=== PATIENT | female | born 1975 | race Two or more races ===

== ENCOUNTER 2020-04-10 11:50 | Outpatient (REF) | payer OTHER, SELFPAY ==
--- NOTE | 2020-04-10 11:55 | MM_ITS ---
EXAMINATION: MM SCREENING DIGITAL BREAST TOMOSYNTHESIS, BILATERAL CLINICAL INFORMATION: Screening. Asymptomatic. The lifetime risk of breast cancer based on the Tyrer-Cuzick Model is 8%. COMPARISON: Mammography: 03/28/2019, 03/14/2018 TECHNIQUE: Digital breast tomosynthesis is performed in both the craniocaudal and mediolateral oblique views along with computer-aided detection (CAD). Synthesized 2D images are generated from the tomosynthesis. FINDINGS: There are scattered areas of fibroglandular density (ACR BI-RADS breast composition Category b). There are no significant masses, abnormal calcifications, or other abnormalities. There are some small intramammary nodes again seen posterior upper outer right breast. The skin contours are smooth. No significant changes. MM/MM tomosynthesis screening BI IMPRESSION: No mammographic evidence of malignancy. ASSESSMENT: BI-RADS 2: Benign RECOMMENDATION: Routine annual mammography screening. This patient's information was entered into a reminder system with a target due date for their next mammogram.
== END 2020-04-10 11:51 | disposition home or self-care (01) ==
LOC: HO.MAMMO 11:50
PROVIDERS: PCP Internal Medicine; Visit Provider Internal Medicine
DX: Z12.31 Encounter for screening mammogram for malignant neoplasm of breast (principal)
CPT/HCPCS: 77063; 77067

== ENCOUNTER → 2020-05-01 10:07 | Outpatient (BNVA) | payer OTHER, SELFPAY | PROVIDERS: PCP Internal Medicine; Referring Provider Internal Medicine; Visit Provider Nurse Practitioner | DX: K75.81 Nonalcoholic steatohepatitis (NASH) (principal); K29.50 Unspecified chronic gastritis without bleeding; K21.9 Gastro-esophageal reflux disease without esophagitis; K58.0 Irritable bowel syndrome with diarrhea; K80.20 Calculus of gallbladder without cholecystitis without obstruction; Z79.899 Other long term (current) drug therapy | CPT/HCPCS: 99212 ==

== ENCOUNTER 2021-05-24 22:42 | Emergency (ER) | payer OTHER, SELFPAY ==
[2021-05-24 22:55] VITALS: BP 110/72; PULSE 75; RESP 26; TEMP 36.9; O2SAT 99; BMI 34.5
[2021-05-24] MEDS: Ondansetron ODT 4 MG TAB.RAPDIS TRANSLINGU (23:08)
[2021-05-24] MEDS: Acetaminophen 325 MG TABLET 650 MG PO (23:09)
[2021-05-24 23:25] LABS: MANUAL DIFF FLAG NO
[2021-05-24 23:26] LABS: Basophils Percent Auto 0.4 % (0-2); Eosinophils Absolute Auto 0.2 X10*3/uL (0.0-0.4); Eosinophils Percent Auto 2.3 % (0-4); Hematocrit 38.8 % (37.0-47.0); Hemoglobin 12.5 g/dl (12.0-16.0); Imm Gran Abs Auto 0.02 X10*3/uL (0.00-0.03); Imm Gran Pct Auto 0.2 % (0.0-0.4); Lymphocytes Absolute Auto 3.9 X10*3/uL (1.2-4.9); Lymphocytes Percent Auto 47.4 % (20-40); Mean Corpuscular HGB Conc 32.2 g/dl (31.0-35.0); Mean Corpuscular Hemoglobin 29.9 pg (27.0-33.0); Mean Corpuscular Volume 92.8 fL (80.0-98.0); Mean Platelet Volume 10.6 fL (9.4-12.3); Monocytes Absolute Auto 0.7 X10*3/uL (0.1-1.2); Monocytes Percent Auto 8.3 % (2-11); Neutrophils Absolute Auto 3.4 x10*3/uL (2.0-8.3); Neutrophils Percent Auto 41.4 % (45-73); Platelet Count 307 X10*3/uL (160-400); Red Blood Count 4.18 X10*6/uL (4.20-5.50); Red Cell Distribution Width 13.1 % (11.0-16.0); White Blood Count 8.3 X10*3/uL (4.8-10.8)
[2021-05-25 00:43] LABS: Alanine Aminotransferase 30 U/L (0-31); Albumin Level 3.7 g/dL (3.5-5.0); Alkaline Phosphatase 75 U/L (39-117); Anion Gap 11 (12-20); Aspartate Amino Transferase 31 U/L (5-31); Bilirubin Total 0.3 mg/dL (0.0-1.0); Blood Urea Nitrogen 5 mg/dL (9-16); Calcium 9.1 mg/dL (8.4-10.2); Carbon Dioxide 28 mmol/L (22-29); Chloride 108 mmol/L (96-108); Creatinine Clr Calc Pharmacy 107.2; Estimated Glomerular Filt Rate > 60; Glucose Random 118 mg/dL (60-115); Lipase 28 U/L (8-78); Potassium 4.5 mmol/L (3.3-5.1); Sodium 142 mmol/L (135-145)
--- NOTE | 2021-05-25 03:50 | ED.ABDPAIN ---
HPI - Abdominal Pain General Chief Complaint: Abdominal Pain Stated Complaint: chest pain, SoB Time Seen by Provider: 05/25/21 03:43 Source: patient Mode of arrival: ambulatory Limitations: no limitations History of Present Illness HPI narrative: Patient comes in urgency room complaining of epigastric burning sensation. Patient states she has chronic gastritis, takes pantoprazole every day. Patient states that yesterday she took pantoprazole but did not help much. On arrival to the emergency room patient was vomiting, patient received 1 dose of Zofran and Tylenol. Patient states that this medication made her feel better. Patient at this time feeling mild burning sensation, no chest pain, no shortness of breath. 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 Related Data Home Medications Medication Instructions Recorded Confirmed famotidine 20 mg tablet 20 mg PO BEDTIME 04/30/20 04/30/20 sucralfate 1 gram tablet (Carafate) 1 g PO BID 04/30/20 04/30/20 Previous Rx's Medication Instructions Recorded pantoprazole 40 mg tablet,delayed 40 mg PO DAILY 90 Days #90 tab 04/20/21 release sucralfate 1 gram tablet (Carafate) 1 g PO BID #30 tab 05/25/21 Allergies Allergy/AdvReac Type Severity Reaction Status Date / Time No Known Allergies Allergy Unverified 02/07/20 19:07 [No Known Allergies*] Pt states no known allergy to Allergy Unknown Uncoded 02/03/16 00:00 Review of Systems Review of Systems Constitutional : No Weight loss, No Fever, No Chills, No Night Sweats, No Fatigue, No Malaise ENT/Mouth : No Hearing loss, No Ear Pain, No Nasal Congestion, No Sinus Pain, No Hoarseness, No sore throat, No Rhinorrhea, No Swallowing Difficulty Eyes: No Eye Pain, No Swelling, No Redness, No Foreign Body, No Discharge, No Vision Changes Cardiovascular : No Chest Pain, No SOB, No Dyspnea on Exertion, No Orthopnea, No Edema, No Palpitations Respiratory : No Cough, No Sputum, No Wheezing, No Smoke Exposure, No Dyspnea Gastrointestinal complaining of nausea, vomiting, no constipation, complaining of burning sensation in the left upper quadrant and epigastric area Genitourinary : no irregular bleeding, No Dysuria, No Urinary Frequency, No Hematuria, No Urinary Incontinence, No Urgency, No Flank Pain, No Urinary Flow Changes, No Hesitancy Musculoskeletal : No joint pain, No Myalgias, No Joint Swelling Skin : No Skin Lesions, No rash Neuro : No Weakness, No Numbness, No Paresthesias, No Loss of Consciousness, No Dizziness, No Headache Psych : No Anxiety/Panic, No Depression, No SI/HI/AH/VH, No Social Issues, Heme/Lymph: No Bruising, No Bleeding,No Lymphadenopathy Endocrine : No Polyuria, No Polydipsia, No Temperature Intolerance Physical Exam Vital Signs: Vital Signs: Last Vital Signs Temp 98.4 F 05/24/21 22:55 Pulse 75 05/24/21 22:55 Resp 26 H 05/24/21 22:55 BP 110/72 05/24/21 22:55 Pulse Ox 99 05/24/21 22:55 BMI result Body Mass Index 34.5 Const: Other: Appearance: Alert. Oriented X3. No acute distress. Eyes: Pupils equal, round and reactive to light. ENT: Pharynx normal. Neck: Normal inspection. Neck supple. No lymph nodes noted. No crepitus CVS: Normal heart rate and rhythm. Pulses normal. Normal S1 and S2 Respiratory: No respiratory distress. Breath sounds normal. No Wheezing. No rales Abdomen: Soft , mild discomfort to palpation over epigastric area rigidity. No distention. good BS x4 Skin: Skin warm and dry. Normal skin color. Normal skin turgor. Extremities: No lower extremity edema. No lower extremity edema. No Lacerations. No Rash Neuro: Oriented X 3. No motor deficit. No sensory deficit. Moving all extermities. No slurred speech. Course Course Course Narrative: Patient received additionally p.o. famotidine, GI cocktail with lidocaine and Maalox. Patient instructed to follow up with the primary care physician MDM - Abdominal Pain Lab Data Result diagrams: 05/24/21 23:21 05/25/21 00:17 Labs: Lab Results 05/24/21 05/25/21 Range/Units 23:21 00:17 WBC 8.3 (4.8-10.8) X10*3/uL RBC 4.18 L (4.20-5.50) X10*6/uL Hgb 12.5 (12.0-16.0) g/dl Hct 38.8 (37.0-47.0) % MCV 92.8 (80.0-98.0) fL MCH 29.9 (27.0-33.0) pg MCHC 32.2 (31.0-35.0) g/dl RDW 13.1 (11.0-16.0) % Plt Count 307 (160-400) X10*3/uL MPV 10.6 (9.4-12.3) fL Immature Gran % (Auto) 0.2 (0.0-0.4) % Neut % (Auto) 41.4 L (45-73) % Lymph % (Auto) 47.4 H (20-40) % Stanly % (Auto) 8.3 (2-11) % Eos % (Auto) 2.3 (0-4) % Baso % (Auto) 0.4 (0-2) % Lymph # (Auto) 3.9 (1.2-4.9) X10*3/uL Stanly # (Auto) 0.7 (0.1-1.2) X10*3/uL Eos # (Auto) 0.2 (0.0-0.4) X10*3/uL Baso # (Auto) 0.0 (0.0-0.2) X10*3/uL Abs Immat Gran (auto) 0.02 (0.00-0.03) X10*3/uL Absolute Neuts (auto) 3.4 (2.0-8.3) x10*3/uL Absolute Nucleated RBC 0.000 (0.0-0.012) X10*3/uL Nucleated RBC % (auto) 0.0 (0.0-0.2) /100WBC Sodium 142 (135-145) mmol/L Potassium 4.5 (3.3-5.1) mmol/L Chloride 108 (96-108) mmol/L Carbon Dioxide 28 (22-29) mmol/L Anion Gap 11 L (12-20) BUN 5 L (9-16) mg/dL Creatinine 0.68 (0.5-1.4) mg/dL Estim Creat Clear Calc 107.2 Estimated GFR > 60 Random Glucose 118 H (60-115) mg/dL Calcium 9.1 (8.4-10.2) mg/dL Total Bilirubin 0.3 (0.0-1.0) mg/dL AST 31 (5-31) U/L ALT 30 (0-31) U/L Alkaline Phosphatase 75 (39-117) U/L Total Protein 7.0 (6.5-8.0) g/dL Albumin 3.7 (3.5-5.0) g/dL Lipase 28 (8-78) U/L Discharge Plan Discharge Clinical Impression: Chronic gastritis Patient Disposition: Home, Self-Care Instructions: Gastritis (ED), Diet for Stomach Ulcers and Gastritis (ED) Additional Instructions: Please follow-up with your primary care physician tomorrow. If you have any worsening or new symptoms, please return to the emergency room or call 911 Prescriptions: New sucralfate [Carafate] 1 gram tablet 1 g PO BID Qty: 30 RF: 0 No Action pantoprazole 40 mg tablet,delayed release (DR/EC) 40 mg PO DAILY 90 Days Qty: 90 RF: 3 sucralfate [Carafate] 1 gram tablet 1 g PO BID RF: 0 famotidine 20 mg tablet 20 mg PO BEDTIME RF: 0 PMFSH Past Medical History Surgical History (Updated 05/01/20 @ 10:16 by DOMINIK Santos) History of esophagogastroduodenoscopy (EGD) Hx of tubal ligation Family History Family History (Updated 05/01/20 @ 10:22 by DOMINIK Santos) Father Stomach cancer Mother Cancer Social History Social History (Updated 05/01/20 @ 10:15 by DOMINIK Santos) Alcohol intake: current Alcohol intake frequency: does not drink Advance Directives: No Advance Directives Information Provided: Yes
[2021-05-25 04:04] VITALS: BP 118/52; PULSE 78; RESP 16; O2SAT 98
[2021-05-25] MEDS: Lidocaine HCl Viscous 2 % 15 ML SOLUTION MUCOUS MEM (04:05)
[2021-05-25] MEDS: Famotidine 20 MG TABLET PO (04:05)
[2021-05-25] MEDS: Magnesium Hydrox/Alum Hydrox 30 ML ORAL.SUSP PO (04:05)
== END 2021-05-25 04:20 | disposition home or self-care (01) ==
PROVIDERS: Emergency Provider Emergency Medicine
DX: K29.50 Unspecified chronic gastritis without bleeding (principal); R10.13 Epigastric pain
CPT/HCPCS: 36415; 80053; 83690; 85025; 99283; 99284

== ENCOUNTER 2021-06-23 08:52 | Outpatient (REF) | payer OTHER, SELFPAY ==
--- NOTE | ~2021-06-23 | FL_ITS ---
EXAMINATION: XR FLUOROSCOPY UPPER GI WITH AIR CLINICAL INFORMATION: Gastroesophageal reflux disease without esophagitis COMPARISON: None TECHNIQUE: Upper GI was performed using thin and thick barium and effervescent granules. FINDINGS: The esophagus is normal-appearing. No gastroesophageal reflux or hernia is seen. The stomach and duodenum are normal-appearing. No fold thickening, mass, ulcer or stricture is seen. FLUOROSCOPY TIME: 0.7 minutes DOSE AREA PRODUCT: 5.7 sequeira per centimeter squared. 25 saved fluoroscopic images. FL/FL upper GI w air IMPRESSION: Unremarkable examination.
== END 2021-06-23 08:53 | disposition home or self-care (01) ==
LOC: HO.XRAY 08:52
PROVIDERS: PCP Internal Medicine; Visit Provider Internal Medicine
DX: K21.9 Gastro-esophageal reflux disease without esophagitis (principal)
CPT/HCPCS: 74246

== ENCOUNTER → 2021-08-11 08:15 | Outpatient (BNVA) | payer OTHER, SELFPAY | PROVIDERS: PCP Internal Medicine; Referring Provider Internal Medicine; Visit Provider Nurse Practitioner | DX: K21.9 Gastro-esophageal reflux disease without esophagitis (principal); K75.81 Nonalcoholic steatohepatitis (NASH); K58.0 Irritable bowel syndrome with diarrhea; K80.20 Calculus of gallbladder without cholecystitis without obstruction | CPT/HCPCS: 99212 ==

== ENCOUNTER 2021-08-19 09:53 | Outpatient (REF) | payer OTHER, SELFPAY ==
[2021-08-19 10:30] LABS: Appearance Urine HAZY; Color Urine STRAW; Glucose Urine UA NEG (NEG); Leukocyte Esterase Urine 1+ (NEG); Nitrite Urine NEG (NEG); PH 6.5 (5.0-8.0); Specific Gravity - Urine <= 1.005 (1.005-1.025); UACC Culture Trigger YES; Urine Blood 1+ (NEG); Urine Ketones NEG (NEG); Urine Protein NEG (NEG-TRACE)
[2021-08-19 10:55] LABS: Bacteria Urine TRACE /LPF; Squamous Epithelial Cell Urine 2+ /LPF
== END 2021-08-19 09:54 | disposition home or self-care (01) ==
LOC: HO.10HDL 09:53
PROVIDERS: Visit Provider Internal Medicine
DX: R30.0 Dysuria (principal)
CPT/HCPCS: 81001; 87086; 87088; 87186

== ENCOUNTER → 2022-08-31 08:22 | Outpatient (REF) | payer OTHER, SELFPAY ==
--- NOTE | 2022-08-31 08:35 | ECG_ITS ---
Test Reason : CP Blood Pressure : / mmHG Vent. Rate : 080 BPM Atrial Rate : 080 BPM P-R Int : 164 ms QRS Dur : 078 ms QT Int : 374 ms P-R-T Axes : 046 055 048 degrees QTc Int : 431 ms Normal sinus rhythm Normal ECG When compared with ECG of 23-JAN-2018 12:35, No significant change was found Referred By: Nasrin Sheppard Electronically Signed By:LESLEY VYAS MD
[2022-08-31 08:36] LABS: MANUAL DIFF FLAG NO
[2022-08-31 09:08] LABS: Basophils Percent Auto 0.4 % (0-2); Eosinophils Absolute Auto 0.2 X10*3/uL (0.0-0.4); Eosinophils Percent Auto 2.4 % (0-4); Hematocrit 37.1 % (37.0-47.0); Hemoglobin 11.8 g/dl (12.0-16.0); Imm Gran Abs Auto 0.02 X10*3/uL (0.00-0.03); Imm Gran Pct Auto 0.3 % (0.0-0.4); Lymphocytes Absolute Auto 3.1 X10*3/uL (1.2-4.9); Lymphocytes Percent Auto 43.2 % (20-40); Mean Corpuscular HGB Conc 31.8 g/dl (31.0-35.0); Mean Corpuscular Hemoglobin 27.5 pg (27.0-33.0); Mean Corpuscular Volume 86.5 fL (80.0-98.0); Monocytes Absolute Auto 0.5 X10*3/uL (0.1-1.2); Monocytes Percent Auto 7.5 % (2-11); Neutrophils Absolute Auto 3.3 x10*3/uL (2.0-8.3); Neutrophils Percent Auto 46.2 % (45-73); Platelet Count 389 X10*3/uL (160-400); Red Blood Count 4.29 X10*6/uL (4.20-5.50); Red Cell Distribution Width 13.8 % (11.0-16.0); White Blood Count 7.2 X10*3/uL (4.8-10.8)
[2022-08-31 09:48] LABS: Alanine Aminotransferase 31 U/L (0-31); Albumin Level 3.4 g/dL (3.5-5.0); Alkaline Phosphatase 124 U/L (39-117); Anion Gap 8 (12-20); Aspartate Amino Transferase 32 U/L (5-31); Bilirubin Total 0.5 mg/dL (0.0-1.0); Blood Urea Nitrogen 9 mg/dL (9-16); Calcium 8.6 mg/dL (8.4-10.2); Carbon Dioxide 27 mmol/L (22-29); Chloride 109 mmol/L (96-108); Cholesterol 151 mg/dL; Estimated Glomerular Filt Rate > 60; Glucose Random 95 mg/dL (60-115); HDL Cholesterol 36 mg/dL; LDL Cholesterol Calculated 99 mg/dl; Potassium 4.7 mmol/L (3.3-5.1); Sodium 139 mmol/L (135-145); Total Protein 6.8 g/dL (6.5-8.0); Triglycerides 83 mg/dL
[2022-08-31 10:11] LABS: TSH reflex Free T4 1.72 uIU/mL (0.32-4.0)
== END ==
LOC: HO.CARD 08:22
PROVIDERS: PCP Internal Medicine; Visit Provider Nurse Practitioner Family
DX: Z13.29 Encounter for screening for other suspected endocrine disorder (principal); Z13.0 Encounter for screening for diseases of the blood and blood-forming organs and certain disorders involving the immune mechanism; Z13.220 Encounter for screening for lipoid disorders; R07.9 Chest pain, unspecified
CPT/HCPCS: 36415; 80053; 80061; 84443; 85025; 93005

== ENCOUNTER → 2022-10-26 12:35 | Outpatient (BNVA) | payer OTHER, SELFPAY | PROVIDERS: PCP Internal Medicine; Visit Provider Nurse Practitioner | DX: K21.9 Gastro-esophageal reflux disease without esophagitis (principal); K58.0 Irritable bowel syndrome with diarrhea; K75.81 Nonalcoholic steatohepatitis (NASH); K80.20 Calculus of gallbladder without cholecystitis without obstruction; K29.50 Unspecified chronic gastritis without bleeding | CPT/HCPCS: 99212 ==

== ENCOUNTER 2023-04-06 16:00 | Emergency (ER) | payer OTHER, SELFPAY ==
--- NOTE | ~2023-04-06 | XR_ITS ---
EXAMINATION: XR CHEST CLINICAL INFORMATION: Chest pain COMPARISON: Previous chest x-ray August 2019 TECHNIQUE: Frontal view of the chest was obtained. FINDINGS: No significant abnormality is noted involving the heart, lungs, mediastinum, bony thorax or soft tissues. XR/XR chest 1V IMPRESSION: Unremarkable examination.
--- NOTE | 2023-04-06 16:03 | ECG_ITS ---
Test Reason : CP Blood Pressure : / mmHG Vent. Rate : 100 BPM Atrial Rate : 100 BPM P-R Int : 154 ms QRS Dur : 068 ms QT Int : 344 ms P-R-T Axes : 024 033 022 degrees QTc Int : 443 ms Sinus tachycardia Normal ECG When compared with ECG of 31-AUG-2022 08:46, Heart rate has increased Referred By: Generic ED Physician Electronically Signed By:RAHUL MOODY MD
[2023-04-06 16:20] LABS: MANUAL DIFF FLAG NO
[2023-04-06 16:21] LABS: Basophils Percent Auto 0.3 % (0-2); Eosinophils Absolute Auto 0.1 X10*3/uL (0.0-0.4); Eosinophils Percent Auto 1.5 % (0-4); Hematocrit 37.5 % (37.0-47.0); Hemoglobin 12.1 g/dl (12.0-16.0); Imm Gran Abs Auto 0.02 X10*3/uL (0.00-0.03); Imm Gran Pct Auto 0.3 % (0.0-0.4); Lymphocytes Absolute Auto 2.9 X10*3/uL (1.2-4.9); Lymphocytes Percent Auto 39.5 % (20-40); Mean Corpuscular HGB Conc 32.3 g/dl (31.0-35.0); Mean Corpuscular Hemoglobin 27.1 pg (27.0-33.0); Mean Corpuscular Volume 84.1 fL (80.0-98.0); Mean Platelet Volume 9.6 fL (9.4-12.3); Monocytes Absolute Auto 0.4 X10*3/uL (0.1-1.2); Monocytes Percent Auto 5.5 % (2-11); Neutrophils Absolute Auto 3.9 x10*3/uL (2.0-8.3); Neutrophils Percent Auto 52.9 % (45-73); Platelet Count 377 X10*3/uL (160-400); Red Blood Count 4.46 X10*6/uL (4.20-5.50); Red Cell Distribution Width 13.9 % (11.0-16.0); White Blood Count 7.4 X10*3/uL (4.8-10.8)
[2023-04-06 16:22] VITALS: PULSE 102; RESP 20; O2SAT 97; BMI 38.0
--- NOTE | 2023-04-06 16:27 | PC.NURSE ---
Patient reports right sided chest pain that started yesterday and has been constant. Unable to fully turn neck towards right side. reports pain with palpation on right side of chest. No swelling in lower extremities
[2023-04-06 16:29] VITALS: PULSE 102
--- NOTE | 2023-04-06 16:32 | ED_ITS ---
HPI - Chest Pain General Chief Complaint: Chest Pain Stated Complaint: chest pain Time Seen by Provider: 04/06/23 16:16 Source: patient Mode of arrival: ambulatory Limitations: no limitations History of Present Illness HPI narrative: a 48-year-old female came in for evaluation of chest pain. Right-sided chest pain constant since last night, no trauma, no injury to the right chest, no recent travel, no lower wall tenderness no history of PE or DVT. Pain is localized to the right chest area more with moving her head to the right side, no coughing, no fever, no chills. Related Data Previous Rx's Medication Instructions Recorded famotidine 40 mg tablet (Pepcid) 40 mg PO BEDTIME #30 tabs 10/26/22 pantoprazole 40 mg tablet,delayed 40 mg PO DAILY 90 days #90 tabs 10/26/22 release sucralfate 1 gram tablet (Carafate) 1 g PO BID #60 tabs 10/26/22 Allergies Allergy/AdvReac Type Severity Reaction Status Date / Time No Known Allergies Allergy Verified 10/26/22 12:45 [No Known Allergies*] Review of Systems 2 Review of Systems: all other systems are reviewed and are negative Constitutional: Reports as per HPI and Reports no additional constitutional complaints Eyes: Reports as per HPI and Reports no additional eye complaints Reports system reviewed and no additional complaints, except as documented Cardiovascular: Reports as per HPI and Reports no additional cardiovascular complaints Respiratory: Reports as per HPI and Reports no additional respiratory complaints Gastrointestinal: Reports as per HPI and Reports no additional gastrointestinal complaints Genitourinary: Reports no additional female genitourinary complaints Musculoskeletal: Reports no additional musculoskeletal complaints Skin/Breast: Reports system reviewed and no additional complaints, except as docu Psychiatric: Reports no additional psychiatric complaints Endocrine: Reports no additional endocrine complaints Hematologic/Lymphatic: Reports no additional hematologic/lymphatic complaints Allergic/Immunologic: Reports no additional allergic/immunologic complaints Reports system reviewed and no additional complaints, except as documented and Reports Abnormal speech present [facility] Past Medical History Medical History Dizziness Chest pain Obese Migraines Surgical History History of esophagogastroduodenoscopy (EGD) Hx of tubal ligation Family History Family History Father Stomach cancer Mother Cancer Social History Social History Housing: Apartment Alcohol intake: never Patient Tobacco Use Status: Former Tobacco user Tobacco use type: Cigarette Smoked in Last 30 Days: No e-Cigarette/Vaping Use: Never Used Second Hand Smoke Exposure: No Use of substances other than those prescribed or required for medical reasons: No Advance Directives: No service: No Current occupational status: employed Current occupational exposures/hazards: No Physical Exam 2 Vital Signs: Vital Signs: Last Vital Signs Temp 98.3 F 04/06/23 18:23 Pulse 90 04/06/23 18:23 Resp 22 H 04/06/23 18:23 BP 136/81 04/06/23 18:23 Pulse Ox 98 04/06/23 18:23 O2 Del Method Room Air 04/06/23 18:23 BMI result Body Mass Index 38.0 Vital signs have been reviewed and appear to be correct. Blood pressure elevated. Heart rate normal. Respiratory rate normal. Temperature normal. Oxygen saturation normal. Appearance: Alert. Oriented X3. No acute distress. Head: Normal external exam. Normocephalic. Atraumatic. No Blakely signs noted. No raccoon eyes noted Eyes: PERRLA. EOMI. Conjunctiva and sclera normal. Eyelids normal. ENT: TM's Normal. Pharynx normal. Uvula midline. Moist mucous membranes. No trismus noted. No drooling noted. No muffled voice noted. Neck: Normal inspection. Neck supple. FROM. No adenopathy. Thyroid Normal. No meningeal signs. No neck mass noted. CVS: Normal heart rate and rhythm. Heart sound normal. No murmurs noted. Pulses normal throughout. Respiratory: No respiratory distress. Painless inspiration. Breath sounds normal. No wheezes/rales/rhonchi noted. Chest nontender. No accessory muscle usage noted or decreased air movement noted. Abdomen: Soft and nontender. Bowel sounds normal in all 4 quadrants. No distention noted. No organomegaly noted. No visible injury noted. Back: No CVA tenderness. Full range of motion noted. Skin: Skin warm and dry. Normal skin color. Normal skin turgor. No rashes/lesions/lacerations noted. Extremities: No lower extremity edema. Extremities exhibit normal range of motion. Extremities nontender. Neuro: Oriented X 3. Cranial nerve exam: II-XII are grossly intact No motor deficit. No sensory deficit. Reflexes normal. Course Reevaluation(s) Reevaluation #1: right chest pain for 1 day, unremarkable cardiac workup, chest x-ray. Exam is showing reproducible tenderness to the right side of the chest, no risk factor for PE no recent travel, no prolonged immobilization, no lower extremity swelling or tenderness. Time: 18:50 Medical Decision Making Differential Diagnosis Differential Diagnoses: The differential diagnosis associated with the presentation includes ( ACS, pneumonia, pneumothorax, pleural effusion, chest wall pain, electrolyte abnormality, severe anemia.) Admission/Observation Consideration of admission/observation: Escalation of care including admission/observation considered Lab Data MDM Lab Attestation statement: I reviewed the patient's lab results. 04/06/23 16:12 04/06/23 16:12 Labs: Lab Results 04/06/23 Range/Units 16:12 WBC 7.4 (4.8-10.8) X10*3/uL RBC 4.46 (4.20-5.50) X10*6/uL Hgb 12.1 (12.0-16.0) g/dl Hct 37.5 (37.0-47.0) % MCV 84.1 (80.0-98.0) fL MCH 27.1 (27.0-33.0) pg MCHC 32.3 (31.0-35.0) g/dl RDW 13.9 (11.0-16.0) % Plt Count 377 (160-400) X10*3/uL MPV 9.6 (9.4-12.3) fL Immature Gran % (Auto) 0.3 (0.0-0.4) % Neut % (Auto) 52.9 (45-73) % Lymph % (Auto) 39.5 (20-40) % Leon % (Auto) 5.5 (2-11) % Eos % (Auto) 1.5 (0-4) % Baso % (Auto) 0.3 (0-2) % Lymph # (Auto) 2.9 (1.2-4.9) X10*3/uL Leon # (Auto) 0.4 (0.1-1.2) X10*3/uL Eos # (Auto) 0.1 (0.0-0.4) X10*3/uL Baso # (Auto) 0.0 (0.0-0.2) X10*3/uL Abs Immat Gran (auto) 0.02 (0.00-0.03) X10*3/uL Absolute Neuts (auto) 3.9 (2.0-8.3) x10*3/uL Absolute Nucleated RBC 0.000 (0.0-0.012) X10*3/uL Nucleated RBC % (auto) 0.0 (0.0-0.2) /100WBC Sodium 139 (135-145) mmol/L Potassium 3.6 D (3.3-5.1) mmol/L Chloride 106 (96-108) mmol/L Carbon Dioxide 26 (22-29) mmol/L Anion Gap 11 L (12-20) BUN 6 L (9-16) mg/dL Creatinine 0.74 (0.5-1.4) mg/dL Estim Creat Clear Calc 113.4 Estimated GFR > 60 Random Glucose 113 (60-115) mg/dL Calcium 9.0 (8.4-10.2) mg/dL Troponin I High Sens < 2.7 (<3.5-17.0) ng/L Independent Interpretation I performed an independent interpretation of an: Plain X-Ray ( Chest: No acute intrathoracic pathology.) Radiology Impression Discussion of test interpretation with radiology: I have reviewed the radiologist's reading. Discharge Plan Discharge Clinical Impression: Chest pain Patient Disposition: Home, Self-Care Instructions: Chest Pain (ED) Prescriptions: No Action sucralfate [Carafate] 1 gram tablet 1 g PO BID Qty: 60 6RF pantoprazole 40 mg tablet,delayed release (DR/EC) 40 mg PO DAILY 90 Days Qty: 90 6RF famotidine [Pepcid] 40 mg tablet 40 mg PO BEDTIME Qty: 30 6RF Referrals: Norma Huston MD [Primary Care Provider] -
[2023-04-06 16:36] LABS: Anion Gap 11 (12-20); Blood Urea Nitrogen 6 mg/dL (9-16); Carbon Dioxide 26 mmol/L (22-29); Chloride 106 mmol/L (96-108); Creatinine Clr Calc Pharmacy 113.4; Estimated Glomerular Filt Rate > 60; Glucose Random 113 mg/dL (60-115); Potassium 3.6 mmol/L (3.3-5.1); Sodium 139 mmol/L (135-145)
[2023-04-06 16:45] LABS: Troponin-I High Sensitivity < 2.7 ng/L (<3.5-17.0)
[2023-04-06 18:23] VITALS: BP 136/81; PULSE 90; RESP 22; TEMP 36.8; O2SAT 98
--- NOTE | 2023-04-06 19:16 | PC.NURSE ---
Assumed care of pt. Pt lying on stretcher, endorsing R chest pain. Initial plan for DC held for CXR and results.
[2023-04-06 20:17] VITALS: BP 147/73; PULSE 84; RESP 18; TEMP 36.8; O2SAT 99
== END 2023-04-06 20:49 | disposition home or self-care (01) ==
PROVIDERS: Emergency Provider Emergency Medicine; PCP Internal Medicine
DX: R07.89 Other chest pain (principal); Z79.899 Other long term (current) drug therapy
CPT/HCPCS: 36415; 71045; 80048; 84484; 85025; 93005; 99283; 99284

== ENCOUNTER 2023-05-18 22:46 | Emergency (ER) | payer OTHER, SELFPAY ==
[2023-05-18 23:52] VITALS: BP 120/59; PULSE 142; RESP 22; TEMP 39.4; O2SAT 97; BMI 40.2
--- NOTE | 2023-05-19 00:19 | PC.NURSE ---
Pt aox4. Febrile 103F Reports taking Advil Migraine half an hour ago. Sinus tach on monitor HR 125. Reports headache, 10/30.
[2023-05-19] MEDS: Ondansetron ODT 4 MG TAB.RAPDIS TRANSLINGU (00:26)
[2023-05-19] MEDS: Acetaminophen 325 MG TABLET 975 MG PO (00:26)
--- NOTE | 2023-05-19 00:38 | ED_ITS ---
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 Related Data Previous Rx's Medication Instructions Recorded famotidine 40 mg tablet (Pepcid) 40 mg PO BEDTIME #30 tabs 10/26/22 pantoprazole 40 mg tablet,delayed 40 mg PO DAILY 90 days #90 tabs 10/26/22 release sucralfate 1 gram tablet (Carafate) 1 g PO BID #60 tabs 10/26/22 Allergies Allergy/AdvReac Type Severity Reaction Status Date / Time No Known Allergies Allergy Verified 10/26/22 12:45 [No Known Allergies*] Review of Systems Review of Systems: Pertinent positives and negatives as stated in HPI [facility] Past Medical History Source: nursing notes reviewed Medical History Dizziness Chest pain Obese Migraines Surgical History History of esophagogastroduodenoscopy (EGD) Hx of tubal ligation Family History Family History Father Stomach cancer Mother Cancer Social History Social History Housing: Apartment Alcohol intake: never Patient Tobacco Use Status: Former Tobacco user Tobacco use type: Cigarette Smoked in Last 30 Days: No e-Cigarette/Vaping Use: Never Used Second Hand Smoke Exposure: No Use of substances other than those prescribed or required for medical reasons: No Advance Directives: No Advance Directives Information Provided: No Patient : No service: No Current occupational status: employed Current occupational exposures/hazards: No Physical Exam ED Vital Signs: Vital Signs - 24 hr 05/18/23 23:52 05/19/23 02:19 Temperature 103 F H 98.6 F Pulse Rate 142 H 103 H Respiratory Rate 22 H 16 Blood Pressure 120/59 L 100/50 L Pulse Oximetry 97 95 Oxygen Delivery Method Room Air Room Air BMI result Body Mass Index 40.2 VITAL SIGNS: Reviewed. GENERAL: Well developed, well nourished, in no acute distress. HEAD: Normocephalic/atraumatic EYES: PERRLA, EOMI EARS: Ext canals without abnormality, TMs non-bulging and non-erythematous NOSE: Nares patent bilateral OROPHARYNX: no oral lesions noted, posterior pharynx clear and non-erythematous without noted tonsillar enlargement/erythema/exudates NECK: Supple, no adenopathy LUNGS: Normal breath sounds. No adventitious sounds or accessory muscle use. SpO2<97> CARDIOVASCULAR: Tachycardia rate and rhythm without noted murmurs ABDOMEN: Soft, non-tender, non-distended with bowel sounds. MUSCULOSKELETAL: No tenderness, deformities, or effusions noted on gross inspection. EXTREMITIES: No cyanosis, clubbing or edema. SKIN: Inspection of the skin reveals no rashes NEUROLOGIC: Alert and oriented x 4. Strength and sensation to light touch were grossly intact x 4. Medications Administered Discontinued Medications Generic Name Dose Route Start Last Admin Trade Name Freq PRN Reason Stop Dose Admin Acetaminophen 975 mg 05/19/23 00:13 05/19/23 00:26 Acetaminophen 325 Mg Tablet PO 05/19/23 00:14 975 mg ONCE ONE Administration Ibuprofen 400 mg 05/19/23 00:13 05/19/23 00:26 Ibuprofen 400 Mg Tablet PO 05/19/23 00:14 Not Given ONCE ONE Ondansetron HCl 4 mg 05/19/23 00:13 05/19/23 00:26 Ondansetron Odt 4 Mg Tab.Rapdis TRANSLINGU 05/19/23 00:14 4 mg ONCE ONE Administration Medical Decision Making Medical Decision Making [facility] Narrative: 48-year-old female with history and clinical presentation consistent with viral syndrome, suspect that tachycardic rate is secondary to febrile state which was confirmed with measured temperature of 103 degrees. Supplemented patient's use of NSAIDs prior to arrival with Tylenol as well as medication for nausea and vomiting. I reviewed all investigations and patient is flu positive but outside the window for treatment with Tamiflu. Will monitor until heart rate and fever have resolved. Also will encourage drinking of water. 0238: On re-evaluation patient is feeling better, heart rate has resolved and temperature is now within normal limits. Hydration is strongly encouraged patient has residual headache that is likely secondary to a component of dehydration from being febrile. She is otherwise discharged home. Patient is o utside the window for Tamiflu prescription. Differential Diagnosis Differential Diagnoses: The differential diagnosis associated with the p resentation includes Please see the discussion above Admission/Observation Consideration of admission/observation: Escalation of care including admission/observation considered Please see the discussion above Lab Data MDM Lab Attestation statement: I reviewed the patient's lab results. Please see the discussion above Labs: Lab Results 05/19/23 Range/Units 00:17 COVID-19 ([facility]) Negative (Negative) COVID-19 Clin Com See Note Influenza Type A ([facility]) Positive A (Negative) Influenza Type B ([facility]) Negative (Negative) Influenza A & B Note See Note External Record Review External record reviewed: Outpatient record and Prior outpatient labs Critical Care Time Critical Care Time Critical Care Time: Yes Total Critical Care Time: 30 Attestation: I personally attest to this time spent taking care of the patient. Discharge Plan Discharge Clinical Impression: Viral syndrome, Influenza A Patient Disposition: Home, Self-Care Instructions: Viral Syndrome (ED), Influenza (ED) Additional Instructions: 1. Recomiende Tylenol/ibuprofeno de venta omega seg?n sea necesario para jakub corporales, jakub de nathan y temperaturas superiores a 100,4. Es importante que te mantengas marlin hidratado y descanses. 2. Seguimiento con el m?dico de atenci?n primaria en los pr?ximos 1-2 d?as. Regrese a la edwin de emergencias si los s?ntomas empeoran. 1. Recommend [id number] Tylenol/ibuprofen as needed for body aches, headaches, temperatures greater than 100.4. It is important that you remain well hydrated and get rest 2. Follow-up with primary care doctor in the next 1-2 days. Return to the ER for any worsening symptoms. Prescriptions: No Action sucralfate [Carafate] 1 gram tablet 1 g PO BID Qty: 60 6RF pantoprazole 40 mg tablet,delayed release (DR/EC) 40 mg PO DAILY 90 Days Qty: 90 6RF famotidine [Pepcid] 40 mg tablet 40 mg PO BEDTIME Qty: 30 6RF Referrals: Norma Huston MD [Primary Care Provider] - Stand Alone Forms: Work/School Release Print Language: Stateless
[2023-05-19 00:49] LABS: COVID-19 Test Negative (Negative); IDNOW Serial# 08D9AD1C; IDNOW Serial# BCCEAD1C
[2023-05-19 00:50] LABS: Influenza A Positive (Negative); Influenza B2 Negative (Negative)
[2023-05-19 02:19] VITALS: BP 100/50; PULSE 103; RESP 16; TEMP 37; O2SAT 95
[2023-05-19 03:09] VITALS: BP 115/67; PULSE 104; RESP 13; TEMP 36.8; O2SAT 96
--- NOTE | 2023-05-19 07:52 | ECG_ITS ---
Test Reason : TACHYCARDIA Blood Pressure : / mmHG Vent. Rate : 130 BPM Atrial Rate : 130 BPM P-R Int : 144 ms QRS Dur : 072 ms QT Int : 286 ms P-R-T Axes : 036 040 017 degrees QTc Int : 420 ms Sinus tachycardia Possible Left atrial enlargement Borderline ECG When compared with ECG of 06-APR-2023 16:05, increase in ventricular rate Referred By: Sonia Garces Electronically Signed By:VALENCIA JOYCE
== END 2023-05-19 03:24 | disposition home or self-care (01) ==
PROVIDERS: Emergency Provider Student in an Organized Health Care Education/Training Program; PCP Internal Medicine
DX: J10.1 Influenza due to other identified influenza virus with other respiratory manifestations (principal); B34.9 Viral infection, unspecified; R50.9 Fever, unspecified; R51.9 Headache, unspecified; R11.2 Nausea with vomiting, unspecified; M79.10 Myalgia, unspecified site; Z87.891 Personal history of nicotine dependence; Z11.52 Encounter for screening for COVID-19; Z20.822 Contact with and (suspected) exposure to COVID-19
CPT/HCPCS: 87502; 87635; 93005; 99283; 99284

== ENCOUNTER → 2023-05-19 07:52 | Outpatient (BNV) | payer OTHER, SELFPAY | PROVIDERS: Emergency Provider Student in an Organized Health Care Education/Training Program; PCP Internal Medicine; Visit Provider Internal Medicine | DX: R00.0 Tachycardia, unspecified (principal) | CPT/HCPCS: 93010 ==

== ENCOUNTER 2023-05-24 11:58 | Outpatient (AMB) | payer OTHER, SELFPAY ==
[2023-05-24 11:59] VITALS: BP 116/84; PULSE 89; O2SAT 96; BMI 41.4
--- NOTE | 2023-05-24 11:59 | MHC.PC.OV ---
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 Accompanied by: Self / Same As Patient Allergies No Known Allergies [No Known Allergies*] Allergy (Verified 05/24/23 12:10) Medication List - Last Reconciled 05/24/23 by Norma Miller MD famotidine (Pepcid) 40 mg PO BEDTIME pantoprazole 40 mg PO DAILY 90 days sucralfate (Carafate) 1 g PO BID Tobacco use date assessed: 05/24/23 Dental Screening Dental Screen Date: 05/24/23 Did you have a dental visit in the last 12 months?: No Did you have a dental problem in the last 6 months where you did not have access to dental care?: No Was dental information given to patient?: Patient has dentist HPI HPI Comments History of Present Illness Details This is a 48-year-old female with mild major depression, morbid obesity and GERD that comes for hospital discharge follow-up with discharge date 05/19/2023 due to influenza a. She said that 3 days before she started to have nasal congestion, fever, productive cough, nausea and vomiting. She took Tylenol for symptoms. Feels markedly improved and still has the neck in cough but no fever. Her mild major depression is in remission. She is morbidly obese with a BMI of 41.4 and is interested in trying a medication to help her lose weight. GERD stable with PPIs as needed. [facility] Medical History (Updated 05/24/23 @ 12:18 by Norma Miller MD) Dizziness Chest pain Obese Migraines Surgical History History of esophagogastroduodenoscopy (EGD) Hx of tubal ligation Family History Father Stomach cancer Mother Cancer Social History Housing: Apartment Alcohol intake: never Patient Tobacco Use Status: Former Tobacco user Tobacco use type: Cigarette e-Cigarette/Vaping Use: Never Used Second Hand Smoke Exposure: No service: No Current occupational status: employed Current occupational exposures/hazards: No Cognitive needs: No Hearing needs: No Vision needs: No Questionnaire PHQ-9 Over the last 2 weeks, how often have you been bothered by any of the following problems? 1. Little interest or pleasure in doing things: nearly every day 2. Feeling down, depressed, or hopeless: nearly every day 3. Trouble falling or staying asleep, or sleeping too much: nearly every day 4. Feeling tired or having little energy: not at all 5. Poor appetite or overeating: not at all 6. Feeling bad about yourself - or that you are a failure or have let yourself or your family down: not at all 7. Trouble concentrating on things, such as reading the newspaper or watching television: not at all 8. Moving or speaking so slowly that other people could have noticed. Or the opposite - being so fidgety or restless that you have been moving around a lot more than usual: not at all 9. Thoughts that you would be better off or of hurting yourself in some way: not at all Total score: 9 Depression Screening Interpretation: Positive Depression Screening Done: Yes 42471 - PHQ-9 Billing: Yes Source: Developed by Drs. Brian Garnett, Carlie Giles, Haroon Maher and colleagues, with an educational preeti from [employer]. Thrive Questionnaire Date Thrive assessed: 05/24/23 I am a: Patient What is your living situation today?: I have a steady place to live Within the past 12 months, did the food you bought not last and you didn't have the money to get more?: Never true Within the past 12 months, did you worry whether your food would run out before you got money to buy more?: Never true Do you have trouble paying for medicines?: No Do you have trouble getting transportation to medical appointments?: No Do you have trouble paying your heating and electricity bill?: No Do you have trouble taking care of your child, family member or friend?: No Do you have trouble with day-to-day activities such as bathing, preparing meals, shopping, managing finances, etc.?: No Are you currently unemployed and looking for a job?: No Are you interested in more education?: No Please select the resources that you would like help with: None Currently or been in a relationship where the following occur: no concerns reported AUDIT C Alcohol Use Questionnaire (AUDIT-C) 1. How often do you have a drink containing alcohol?: Never Total Score: 0 Score Reviewed/Action Taken: No ROSA-7 AMB Questionnaire ROSA-7 Date ROSA - 7 assessed: 05/24/23 Feeling nervous, anxious, or on edge: 3 = Nearly every day Not being able to stop or control worryin = Nearly every day Worrying too much about different things: 3 = Nearly every day Trouble relaxin = Not at all Being so restless that it is hard to sit still: 0 = Not at all Becoming easily annoyed or irritable: 0 = Not at all Feeling afraid as if something awful might happen: 0 = Not at all Total ROSA-7 score (0-4 normal; 5-9 mild; 10-14 moderate; 15-21 severe): 9 Source: Developed by Drs. Brian Garnett, Carlie Giles, Haroon Maher and colleagues, with an educational preeti from [employer]. ROSA-7 Assessment Billing ROSA-7 Assessment Tool: ROSA-7 Assessment 31505 Review of Systems Const All systems reviewed & are unremarkable except as noted in HPI and below Eyes Reports no additional complaints, Denies change in vision and Denies other visual disturbances Card Denies chest pain at rest, Denies chest pain with activity, Denies edema, Denies irregular heart rhythm, Denies claudication, Denies dyspnea, Denies dyspnea on exertion, Denies orthopnea, Denies paroxysmal nocturnal dyspnea and Denies slow heart rate Resp Reports cough, Denies dyspnea and Denies dyspnea on exertion GI Denies abdominal pain, Denies change in bowel habits, Denies excessive flatus, Denies nausea and Denies vomiting Denies urinary incontinence, Denies urinary hesitancy and Denies urinary urgency Musc Denies abnormal gait, Denies atrophy, Denies deformity and Denies limited range of motion Skin/Breast Denies bleeding lesions, Denies changing lesions and Denies rash Neuro Denies abnormal gait, Denies behavioral changes and Denies lack of coordination Psych Denies behavioral changes Physical exam (Primary Care) Vital Signs: Last Vital Signs Pulse 89 05/24/23 11:59 BP 116/84 05/24/23 11:59 Pulse Ox 96 05/24/23 11:59 Oxygen Delivery Method Room Air 05/24/23 11:59 BMI result Body Mass Index 41.4 Tobacco/Smoking Status: Tobacco use Status Tobacco use date assessed 05/24/23 05/24/23 12:02 Patient Tobacco Use Status Former Tobacco user 05/24/23 12:02 Tobacco use type Cigarette 05/24/23 12:02 e-Cigarette/Vaping Use Never Used 05/24/23 12:02 PHQ-9: PHQ-9 Score PHQ-9: Total score 9 05/24/23 12:02 Depression Screening Interpretation: Positive Thrive Assessment: Date of Thrive Assessment Date Thrive assessed 05/24/23 05/24/23 12:02 Currently or been in a relationship where the following occur: no concerns reported Eyes General: appearance normal, both eyes and all related structures Eyelids: Yes eyelids normal Conjunctivae: conjunctivae normal Neck Neck: Yes normal visual inspection and Yes supple Resp Effort & Inspection: normal respiratory effort Auscultation: clear to auscultation bilaterally Cardio Jugular venous distension: no JVD Rate: regular rate Rhythm: regular rhythm Heart sounds: S1 normal heart sound present and S2 normal heart sound present Extrem General: Yes full ROM Assessment and Plan Assessment & Plan (1) Hospital discharge follow-up: Code(s): Z09 - Encounter for follow-up examination after completed treatment for conditions other than malignant neoplasm Plan: Discharge date 05/19/2023 due to influenza A. Feels markedly improved. (2) Influenza A: Code(s): J10.1 - Influenza due to other identified influenza virus with other respiratory manifestations Plan: Still has productive cough but no fever. (3) Morbid obesity with BMI of 40.0-44.9, adult: Code(s): E66.01 - Morbid (severe) obesity due to excess calories; Z68.41 - Body mass index [BMI] 40.0-44.9, adult Plan: Start diet and exercise. Start WEgovy if insurance approves. (4) GERD (gastroesophageal reflux disease): Code(s): K21.9 - Gastro-esophageal reflux disease without esophagitis Plan: Continue PPIs. (5) Mild major depression: Code(s): F32.0 - Major depressive disorder, single episode, mild Plan: In remission. Medications: New semaglutide (weight loss) (Wemanuelvurmila) administer weeks 1 through 4 of therapy 0.25 mg (0.5 mL) subcut QWEEK 28 days 2 mL 0RF E66.01 - Morbid (severe) obesity due to excess calories, Z68.41 - Body mass index [BMI] 40.0-44.9, adult Coding Level of Care Code TCM Mod MDM <= 7 Days Diagnoses Hospital discharge follow-up Z09 Influenza A J10.1 Morbid obesity with BMI of 40.0-44.9, adult E66.01; Z68.41 GERD (gastroesophageal reflux disease) K21.9 Mild major depression F32.0 Additional Codes ROSA-7 Assessment Billing - ROSA-7 Assessment Tool: ROSA-7 Assessment 05699 ([id number]) Time Spent (min) 23
== END 2023-05-24 12:15 | disposition home or self-care (01) ==
PROVIDERS: PCP Internal Medicine; Visit Provider Internal Medicine
DX: J10.1 Influenza due to other identified influenza virus with other respiratory manifestations (principal); E66.01 Morbid (severe) obesity due to excess calories; Z68.41 Body mass index [BMI] 40.0-44.9, adult; F32.0 Major depressive disorder, single episode, mild; Z09 Encounter for follow-up examination after completed treatment for conditions other than malignant neoplasm; K21.9 Gastro-esophageal reflux disease without esophagitis
CPT/HCPCS: 99214

== ENCOUNTER 2024-01-20 11:43 | Emergency (ER) | payer OTHER, SELFPAY ==
[2024-01-20 11:53] VITALS: BP 140/85; PULSE 82; RESP 18; TEMP 36.6; O2SAT 100; BMI 43.0
--- NOTE | 2024-01-20 11:53 | ED_ITS ---
HPI - General Adult General Chief complaint: Upper Respiratory Symptoms Stated complaint: Headache fever covid? Time Seen by Provider: 01/20/24 12:16 Source: patient and spanish medical interpreter ([place] citizen) Mode of arrival: ambulatory Limitations: language barrier ([place] citizen speaking) History of Present Illness ED Provider: MAGUE FENTON PA-C HPI narrative: 48 year old Singaporean speaking female presents to the ED today for evaluation of headache and fever x24 hours. 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 Admits her and her son both tested positive for COVID via at home test this morning. Denies sore throat, cough, chest pain, sob, LE pain/swelling. spanish medical interpreter utilizes throughout visit to communicate with patient. Related Data Previous Rx's ?Medication ?Instructions ?Recorded famotidine 40 mg tablet (Pepcid) 40 mg PO BEDTIME #30 tabs 10/26/22 sucralfate 1 gram tablet (Carafate) 1 g PO BID #60 tabs 10/26/22 semaglutide (weight loss) 0.25 0.25 mg (0.5 mL) subcut QWEEK 28 05/24/23 mg/0.5 mL subcutaneous pen days #2 mL injector (Wegovy) pantoprazole 40 mg tablet,delayed 40 mg PO DAILY 90 days #90 tabs 12/15/23 release Allergies Allergy/AdvReac Type Severity Reaction Status Date / Time No Known Allergies Allergy Verified 01/20/24 12:00 [No Known Allergies*] Review of Systems Review of Systems: Constitutional: No fever, chills, fatigue, night sweats, weight changes ENT/Mouth: No ear pain, hearing loss, nasal congestion, sinus pain, rhinorrhea, sore throat Eyes: No eye pain, swelling, redness, vision changes, discharge Cardio: No chest pain, palpitations, FALCON, orthopnea, peripheral edema Pulm: No SOB, cough, sputum, wheezing, dyspnea, hemoptysis GI: No nausea, vomiting, hematemesis, abdominal pain, diarrhea, constipation, hematochezia, melena : No irregular bleeding, dysuria, frequency, urgency, hesitancy, hematuria, flank pain, urinary flow changes, urinary incontinence or retention MSK: No back pain, neck pain, joint pain, myalgias Skin: No lesions, rashes Neuro: No weakness, numbness, paresthesias, LOC, dizziness, +headache Psych: No anxiety/panic, depression, SI/HI, AH/VH All other systems reviewed and are negative. [facility] Past Medical History Attestation statement: The following information was validated with the patient. Source: old records reviewed and nursing notes reviewed Medical History Dizziness Chest pain Obese Migraines Surgical History History of esophagogastroduodenoscopy (EGD) Hx of tubal ligation Family History Family History Father Stomach cancer Mother Cancer Social History Social History Housing: Apartment Alcohol intake: never Patient Tobacco Use Status: Former Tobacco user Tobacco use type: Cigarette e-Cigarette/Vaping Use: Never Used Second Hand Smoke Exposure: No service: No Current occupational status: employed Current occupational exposures/hazards: No Cognitive needs: No Hearing needs: No Vision needs: No Physical Exam ED Vital Signs: Vital Signs - 24 hr 01/20/24 11:53 Temperature 97.9 F Pulse Rate 82 Respiratory Rate 18 Blood Pressure 140/85 H Pulse Oximetry 100 Oxygen Delivery Method Room Air BMI result Body Mass Index 43.0 Vital signs stable. Not hypoxic. Not tachycardic. General: Well appearing, in no acute distress. Skin: Warm, dry, intact. No rashes or lesions. Neck: Supple without LAD. FROM. Trachea midline.? Cardiac: Chest wall symmetric. RRR. No MRG. No JVD. Lungs: Normal respiratory effort without accessory muscle use. CTA bilaterally. No rales, rhonchi, or wheezes.? Abdomen: Soft, non-tender, non-distended. No rebound tenderness or guarding. Positive BS x4. Neuro: AOx3. Normal speech. Sensation intact to light touch. NV intact distally. Ambulating with steady gait. Psych: Appropriate mood and affect. Responds appropriately to questions. Course Course Course Narrative: This is a Rapid Medical Examination (RME) performed by Hussain Fenton PA-C in triage. Full HPI, ROS, assessment and treatment plan per primary provider in the Main ED. 48 yo [place] female here for eval of headache and fever. Took covid test at home and thinks it was positive. her son tested positive at home as well. 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 Plan: viral swabs Reevaluation(s) Reevaluation #1: 0903 -- Patient tested positive for covid, consistent with positive home covid test. Discussed results with patient. Educated on symptomatic treatment. Patient has remained stable throughout ED visit today. Discussed worrisome signs and symptoms and when to return to the ED. All questions answered at this time. Patient is agreeable with disposition and stable for discharge. Medical Decision Making Medical Decision Making MDM Narrative: 48 year old [place]an speaking female presents to the ED today for evaluation of headache and fever x24 hours. Patient afebrile, not hypoxic, not tachycardic. Slightly hypertensive to 140/85. She is not toxic appearing and in NAD. Posterior oropharynx WNL. Bilateral EACs and TMs WNL. Differential diagnosis includes viral syndrome. 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 Plan for viral serology and disposition. Differential Diagnosis Differential Diagnoses: The differential diagnosis associated with the presentation includes as above Admission/Observation Not indicated Lab Data MDM Lab Attestation statement: I reviewed the patient's lab results. As above Labs: Lab Results 01/20/24 Range/Units 11:57 Influenza Type A (PCR) NEGATIVE (Negative) Influenza Type B (PCR) NEGATIVE (Negative) RSV RNA Qual (PCR) NEGATIVE (Negative) SARS-CoV-2 RNA (RT-PCR) POSITIVE A (Negative) External Record Review External record reviewed: Inpatient record Social Determinants Patient?s care significantly limited by Social Determinants of Health including: Other Social Determinant of Health Critical Care Time Critical Care Time Critical Care Time: No Discharge Plan Discharge Clinical Impression: COVID-19 Patient Disposition: Home, Self-Care Instructions: COVID-19 (Coronavirus Disease 2019) (ED) Additional Instructions: Today you tested positive for COVID-19.? Take Ibuprofen or Tylenol as needed for fevers or body aches.? Quarantine for 5 days and ensure you wear a mask. After 5 days you should wear a mask for 5 days after that.? Practice social distancing and good hand hygiene. Drink plenty of fluids. Follow-up with your primary care provider this week. Return to the emergency department with new or worsening symptoms. In case of emergency call 911 You can purchase a pulse oximeter from your local pharmacy or grocery store, and monitor your oxygen saturation if it goes below 94% you should return to the emergency department for further evaluation. Prescriptions: No Action pantoprazole 40 mg tablet,delayed release (DR/EC) 40 mg PO DAILY 90 Days Qty: 90 6RF Wegovy 0.25 mg/0.5 mL pen injector 0.25 mg subcut QWEEK 28 Days Qty: 2 0RF Rx Instructions: administer weeks 1 through 4 of therapy sucralfate [Carafate] 1 gram tablet 1 g PO BID Qty: 60 6RF famotidine [Pepcid] 40 mg tablet 40 mg PO BEDTIME Qty: 30 6RF Referrals: Norma Huston MD [Primary Care Provider] - Stand Alone Forms: Work/School Release Print Language: [place]an
[2024-01-20 12:43] LABS: Influenza A PCR NEGATIVE (Negative); Influenza B PCR NEGATIVE (Negative); Resp Syncy Virus RNA Qual PCR NEGATIVE (Negative); SARS COV2 PCR INHOUSE POSITIVE (Negative)
[2024-01-20 12:59] VITALS: BP 140/85; PULSE 82; RESP 18; TEMP 36.6; O2SAT 100
== END 2024-01-20 13:11 | disposition home or self-care (01) ==
LOC: HO.ED 13:06
PROVIDERS: Physician Assistant Medical; Emergency Provider Emergency Medicine; PCP Internal Medicine
DX: U07.1 COVID-19 (principal)
CPT/HCPCS: 0241U; 99282; 99283

== ENCOUNTER 2024-01-26 03:56 | Emergency (ER) | payer OTHER, SELFPAY ==
[2024-01-26 03:59] VITALS: BP 112/53; PULSE 59; RESP 16; TEMP 36.6; O2SAT 100; BMI 42.1
[2024-01-26 04:35] VITALS: BP 120/62; PULSE 73; RESP 20; TEMP 36.4; O2SAT 100
[2024-01-26 04:35] LABS: MANUAL DIFF FLAG NO
[2024-01-26 04:37] LABS: Basophils Percent Auto 0.3 % (0-2); Eosinophils Absolute Auto 0.2 X10*3/uL (0.0-0.4); Hematocrit 38.4 % (37.0-47.0); Hemoglobin 12.3 g/dl (12.0-16.0); Imm Gran Abs Auto 0.05 X10*3/uL (0.00-0.03); Imm Gran Pct Auto 0.5 % (0.0-0.4); Lymphocytes Absolute Auto 4.4 X10*3/uL (1.2-4.9); Lymphocytes Percent Auto 41.3 % (20-40); Mean Corpuscular Hemoglobin 27.8 pg (27.0-33.0); Mean Corpuscular Volume 86.9 fL (80.0-98.0); Mean Platelet Volume 9.9 fL (9.4-12.3); Monocytes Absolute Auto 0.5 X10*3/uL (0.1-1.2); Neutrophils Absolute Auto 5.4 x10*3/uL (2.0-8.3); Neutrophils Percent Auto 50.9 % (45-73); Platelet Count 356 X10*3/uL (160-400); Red Blood Count 4.42 X10*6/uL (4.20-5.50); Red Cell Distribution Width 14.3 % (11.0-16.0); White Blood Count 10.6 X10*3/uL (4.8-10.8)
[2024-01-26 04:50] LABS: Alanine Aminotransferase 94 U/L (0-31); Albumin Level 3.6 g/dL (3.5-5.0); Alkaline Phosphatase 146 U/L (39-117); Anion Gap 12 (12-20); Aspartate Amino Transferase 83 U/L (5-31); Bilirubin Direct < 0.2 mg/dL (0.0-0.5); Bilirubin Total 0.2 mg/dL (0.0-1.0); Blood Urea Nitrogen 11 mg/dL (9-16); Calcium 8.8 mg/dL (8.4-10.2); Carbon Dioxide 23 mmol/L (22-29); Chloride 105 mmol/L (96-108); Creatinine Clr Calc Pharmacy 93.7; Estimated Glomerular Filt Rate > 60; Glucose Random 142 mg/dL (60-115); Lipase 31 U/L (8-78); Potassium 3.7 mmol/L (3.3-5.1); Sodium 136 mmol/L (135-145); Total Protein 8.1 g/dL (6.5-8.0)
[2024-01-26 05:13] LABS: Influenza A PCR NEGATIVE (Negative); Influenza B PCR NEGATIVE (Negative); Resp Syncy Virus RNA Qual PCR NEGATIVE (Negative); SARS COV2 PCR INHOUSE POSITIVE (Negative)
--- NOTE | 2024-01-26 06:52 | ED.GENADULT ---
HPI - General Adult General Chief complaint: Abdominal Pain Stated complaint: L side abd pain Dizziness Time Seen by Provider: 01/26/24 06:47 Source: patient Mode of arrival: ambulatory Limitations: no limitations History of Present Illness ED Provider: Jessica Benton PA-C HPI narrative: Patient is a 48 year old assigned female at with a history of ROBERTO, GERD, MDD, and migraines presenting to the emergency department today with nausea, vomiting, and diarrhea. Patient states that over the last day she has had nausea, vomiting, and diarrhea. Patient states that she was recently diagnosed with COVID-19. Patient denies any dizziness, lightheadedness, abdominal pain, fever, chills, blurry vision, double vision, loss of vision, chest pain, difficulty breathing, shortness of breath, back pain, night sweats, pain with urination, increased urinary frequency, increased urinary urgency, blood in her urine or stool, syncope or a near syncopal episode, recent trauma or falls, bowel incontinence, bladder incontinence, or any other complaints at this time. Relieving factors: none Exacerbating factors: none Associated symptoms: nausea/vomiting Treatments prior to arrival: none Related Data Previous Rx's ?Medication ?Instructions ?Recorded famotidine 40 mg tablet (Pepcid) 40 mg PO BEDTIME #30 tabs 10/26/22 sucralfate 1 gram tablet (Carafate) 1 g PO BID #60 tabs 10/26/22 semaglutide (weight loss) 0.25 0.25 mg (0.5 mL) subcut QWEEK 28 05/24/23 mg/0.5 mL subcutaneous pen days #2 mL injector (Wegovy) pantoprazole 40 mg tablet,delayed 40 mg PO DAILY 90 days #90 tabs 12/15/23 release Allergies Allergy/AdvReac Type Severity Reaction Status Date / Time No Known Allergies Allergy Verified 01/26/24 03:59 [No Known Allergies*] Review of Systems Constitutional: Constitutional: Reports no additional constitutional complaints, Denies chills, Denies fever(s) and Denies night sweats Eyes: Eyes: Reports no additional eye complaints, Denies blurry vision, Denies change in vision, Denies diplopia, Denies eye discharge, Denies loss of vision and Denies eye pain ENT: Denies dizziness Cardiovascular: Cardiovascular: Reports no additional cardiovascular complaints, Denies chest pain, Denies lightheadedness, Denies Loss of Consciousness and Denies dyspnea Respiratory: Respiratory: Reports no additional respiratory complaints and Denies dyspnea Gastrointestinal: Gastrointestinal: Reports no additional gastrointestinal complaints, Denies abdominal pain, Denies melena, Denies hematochezia, Denies change in bowel habits, Denies change in stool character, Reports diarrhea, Reports nausea and Reports vomiting Genitourinary: Genitourinary: Denies hematuria, Denies urinary frequency, Denies dysuria, Denies urinary incontinence, Denies urinary hesitancy and Denies urinary urgency Musculoskeletal: Musculoskeletal: Reports no additional musculoskeletal complaints, Denies numbness and Denies tingling Neurologic: Denies dizziness, Denies loss of vision, Denies numbness and Denies tingling Psychiatric: Psychiatric: Reports no additional psychiatric complaints Endocrine: Endocrine: Reports no additional endocrine complaints Hematologic/Lymphatic: Hematologic/Lymphatic: Reports no additional hematologic/lymphatic complaints Allergic/Immunologic: Allergic/Immunologic: Reports no additional allergic/immunologic complaints [facility] Past Medical History Attestation statement: The following information was validated with the patient. Source: old records reviewed and nursing notes reviewed Medical History Dizziness Chest pain Obese Migraines Surgical History History of esophagogastroduodenoscopy (EGD) Hx of tubal ligation Family History Family History Father Stomach cancer Mother Cancer Social History Social History Housing: Apartment Alcohol intake: never Patient Tobacco Use Status: Former Tobacco user Tobacco use type: Cigarette Smoked in Last 30 Days: No e-Cigarette/Vaping Use: Never Used Second Hand Smoke Exposure: No Use of substances other than those prescribed or required for medical reasons: No Advance Directives: No Advance Directives Information Provided: Yes Do you have a plan to hurt others: No Plan Patient : No service: No Current occupational status: employed Current occupational exposures/hazards: No Cognitive needs: No Hearing needs: No Vision needs: No Physical Exam ED Vital Signs: Vital Signs - 24 hr 01/26/24 03:59 01/26/24 04:35 01/26/24 08:35 Temperature 97.9 F 97.5 F 97.5 F Pulse Rate 59 73 78 Respiratory Rate 16 20 16 Blood Pressure 112/53 L 120/62 118/68 Pulse Oximetry 100 100 99 Oxygen Delivery Method Room Air Room Air Room Air BMI result Body Mass Index 42.1 Const General: cooperative, no acute distress, alert and awake Nutritional Appearance: well nourished Orientation/consciousness: patient oriented x3 Limitations: no limitations HENMT Head: Yes normal to inspection and Yes atraumatic Ears: hearing grossly normal bilaterally and external ears normal General nose exam: Normal external nose present, no nasal discharge noted and no epistaxis Face and sinus: Yes normal facial exam, No abrasion and No laceration Mouth: Normal oral and palatal mucosa present, no drooling and no muffled voice Eyes General: appearance normal, both eyes and all related structures Periorbital: periorbital findings normal Eyelids: Yes eyelids normal Conjunctivae: conjunctivae normal Pupils: Equal, round and reactive pupils present EOM: EOMs intact bilaterally Neck Neck: Yes normal visual inspection, Yes full ROM and Yes no lymphadenopathy Chest Chest palpation & inspection: normal inspection of the chest Resp Effort & Inspection: normal respiratory effort and able to speak in complete sentences GI Inspection: Yes normal to inspection Neuro General: patient oriented x3 and moves all extremities Cranial nerves: Yes Equal, round and reactive pupils present Cognition (Neuro): normal cognition Extrem General: Yes normal to inspection, Yes full ROM and Yes capillary refill normal Psych Appearance: grossly normal Mental Status: mental status grossly normal Affect: normal affect Attitude: cooperative Thought process: Normal thought process present Thought content: Normal thought content present Insight: Good insight present (Psych) Medications Administered Discontinued Medications Generic Name Dose Route Start Last Admin Trade Name Freq PRN Reason Stop Dose Admin Ondansetron HCl 4 mg 01/26/24 06:54 01/26/24 07:48 Ondansetron Hcl 4 Mg/2 Ml Vial IVPUSH 01/26/24 06:55 Not Given ONCE ONE Pantoprazole Sodium 40 mg 01/26/24 06:54 01/26/24 07:48 Pantoprazole Sodium 40 Mg/10 Ml Vial IVPUSH 01/26/24 06:55 Not Given ONCE ONE Sucralfate 1 gm 01/26/24 06:54 01/26/24 07:48 Sucralfate Oral Suspension 1 Gm/10 Ml Oral.Susp PO 01/26/24 06:55 Not Given ONCE ONE Medical Decision Making Medical Decision Making [facility] Narrative: Patient is a 48 year old assigned female at with a history of ROBERTO, GERD, and recent COVID-19 diagnosis presenting to the emergency department today with nausea, vomiting, and diarrhea. Patient's physical exam was unremarkable. Patient's blood work was unremarkable. Patient's COVID-19 test continues to be positive. I explained my physical exam findings as well as all test results to the patient. I answered all questions asked by the patient. I stressed the importance of the patient taking her medication as directed (either prescribed or as the over the counter packaging recommends). I stressed the importance of the patient following up with her primary care provider. I stressed the importance of the patient returning to the emergency department immediately if her symptoms were to worsen or if she were to develop any dizziness, shortness of breath, difficulty breathing, chest pain, blurry vision, loss of vision, nausea, vomiting, abdominal pain, fever, chills, back pain, or any other complaints. Patient verbalized agreement and understanding with this treatment plan and discharge. Differential Diagnosis Differential Diagnoses: The differential diagnosis associated with the presentation includes Nausea Vomiting Diarrhea COVID-19 Admission/Observation Consideration of admission/observation: Escalation of care including admission/observation considered Patient would have been admitted to the hospital had her work up had any findings where hospital admission was appropriate and her clinical presentation warranted hospital admission. Lab Data [facility] Lab Attestation statement: I reviewed the patient's lab results. My interpretation of these results are in the [facility] Rationale portion of this note. 01/26/24 04:30 01/26/24 04:30 Labs: Lab Results 01/26/24 Range/Units 04:30 WBC 10.6 (4.8-10.8) X10*3/uL RBC 4.42 (4.20-5.50) X10*6/uL Hgb 12.3 (12.0-16.0) g/dl Hct 38.4 (37.0-47.0) % MCV 86.9 (80.0-98.0) fL MCH 27.8 (27.0-33.0) pg MCHC 32.0 (31.0-35.0) g/dl RDW 14.3 (11.0-16.0) % Plt Count 356 (160-400) X10*3/uL MPV 9.9 (9.4-12.3) fL Immature Gran % (Auto) 0.5 H (0.0-0.4) % Neut % (Auto) 50.9 (45-73) % Lymph % (Auto) 41.3 H (20-40) % Loving % (Auto) 5.0 (2-11) % Eos % (Auto) 2.0 (0-4) % Baso % (Auto) 0.3 (0-2) % Lymph # (Auto) 4.4 (1.2-4.9) X10*3/uL Loving # (Auto) 0.5 (0.1-1.2) X10*3/uL Eos # (Auto) 0.2 (0.0-0.4) X10*3/uL Baso # (Auto) 0.0 (0.0-0.2) X10*3/uL Abs Immat Gran (auto) 0.05 H (0.00-0.03) X10*3/uL Absolute Neuts (auto) 5.4 (2.0-8.3) x10*3/uL Absolute Nucleated RBC 0.000 (0.0-0.012) X10*3/uL Nucleated RBC % (auto) 0.0 (0.0-0.2) /100WBC Sodium 136 (135-145) mmol/L Potassium 3.7 (3.3-5.1) mmol/L Chloride 105 (96-108) mmol/L Carbon Dioxide 23 (22-29) mmol/L Anion Gap 12 (12-20) BUN 11 (9-16) mg/dL Creatinine 0.85 (0.5-1.4) mg/dL Estim Creat Clear Calc 93.7 Estimated GFR > 60 Random Glucose 142 H (60-115) mg/dL Calcium 8.8 (8.4-10.2) mg/dL Total Bilirubin 0.2 (0.0-1.0) mg/dL Direct Bilirubin < 0.2 (0.0-0.5) mg/dL AST 83 H (5-31) U/L ALT 94 H (0-31) U/L Alkaline Phosphatase 146 H (39-117) U/L Total Protein 8.1 H (6.5-8.0) g/dL Albumin 3.6 (3.5-5.0) g/dL Lipase 31 (8-78) U/L Influenza Type A (PCR) NEGATIVE (Negative) Influenza Type B (PCR) NEGATIVE (Negative) RSV RNA Qual (PCR) NEGATIVE (Negative) SARS-CoV-2 RNA (RT-PCR) POSITIVE A (Negative) Discharge Plan Discharge Clinical Impression: Nausea & vomiting, COVID-19 Patient Disposition: Home, Self-Care Instructions: Acute Nausea and Vomiting (ED), COVID-19 (Coronavirus Disease 2019) (ED) Additional Instructions: Follow up with your primary care provider. Return to the emergency department immediately if your symptoms worsen or if you develop any dizziness, shortness of breath, difficulty breathing, chest pain, blurry vision, loss of vision, nausea, vomiting, abdominal pain, fever, chills, back pain, or any other complaints. Prescriptions: No Action pantoprazole 40 mg tablet,delayed release (DR/EC) 40 mg PO DAILY 90 Days Qty: 90 6RF Wegovy 0.25 mg/0.5 mL pen injector 0.25 mg subcut QWEEK 28 Days Qty: 2 0RF Rx Instructions: administer weeks 1 through 4 of therapy sucralfate [Carafate] 1 gram tablet 1 g PO BID Qty: 60 6RF famotidine [Pepcid] 40 mg tablet 40 mg PO BEDTIME Qty: 30 6RF Referrals: Norma Huston MD [Primary Care Provider] - Stand Alone Forms: Work/School Release Interventions: ED Discharge Assessment Last Done: 01/26/24 08:35 Discharge Date/Time: 01/26/24 08:36 Print Language: Georgian
--- NOTE | 2024-01-26 07:47 | PC.NURSE ---
patient alert and oriented with even and unlabored respirations. upon meeting patient, states that she is feeling much better - denies any pain/nausea or vomiting. held medications d/t no longer needing them d/t patient disposition.
[2024-01-26 08:35] VITALS: BP 118/68; PULSE 78; RESP 16; TEMP 36.4; O2SAT 99
== END 2024-01-26 08:36 | disposition home or self-care (01) ==
PROVIDERS: Emergency Provider Emergency Medicine; PCP Internal Medicine
DX: U07.1 COVID-19 (principal); R11.2 Nausea with vomiting, unspecified
CPT/HCPCS: 0241U; 36415; 80048; 80076; 83690; 85025; 99283; 99284

== ENCOUNTER 2024-04-10 11:28 | Emergency (ER) | payer OTHER, SELFPAY ==
--- NOTE | ~2024-04-10 | XR_ITS ---
EXAMINATION: XR CHEST CLINICAL INFORMATION: cough/sob COMPARISON: 04/06/2023 TECHNIQUE: 2 views of the chest were obtained. FINDINGS: No significant abnormality is noted involving the heart, lungs, mediastinum, bony thorax or soft tissues. XR/XR chest 2V IMPRESSION: Unremarkable examination. Electronically signed by: Davey Higuera MD 04/10/2024 07:[address] [facility]
[2024-04-10 11:49] VITALS: BP 146/92; PULSE 103; RESP 18; TEMP 36.8; O2SAT 98; BMI 42.8
--- NOTE | 2024-04-10 11:49 | ED_ITS ---
HPI - Headache General Chief Complaint: Upper Respiratory Symptoms Stated Complaint: Headache Time Seen by Provider: 04/10/24 15:56 Source: patient, RN notes reviewed and old records reviewed Mode of arrival: ambulatory History of Present Illness ED Provider: Estela Wilson PA-C HPI Narrative: 49-year-old Japanese-speaking female with a past medical history migraines, GERD, IBS, [place], chronic gastritis, presenting to the ED complaining of headache, subjective fever, sore throat, congestion, dry cough and mild SOB x 4 days. Denies chest pain, travel, pedal edema/calf tenderness. + sick contact Related Data Previous Rx's ?Medication ?Instructions ?Recorded famotidine 40 mg tablet (Pepcid) 40 mg PO BEDTIME #30 tabs 10/26/22 sucralfate 1 gram tablet (Carafate) 1 g PO BID #60 tabs 10/26/22 semaglutide (weight loss) 0.25 0.25 mg (0.5 mL) subcut QWEEK 28 05/24/23 mg/0.5 mL subcutaneous pen days #2 mL injector (Wegovy) pantoprazole 40 mg tablet,delayed 40 mg PO DAILY 90 days #90 tabs 12/15/23 release Allergies Allergy/AdvReac Type Severity Reaction Status Date / Time No Known Allergies Allergy Verified 04/10/24 11:52 [No Known Allergies*] Review of Systems Review of Systems: Yes all other systems are reviewed and are negative Constitutional: Constitutional: Reports as per [facility] Past Medical History Attestation statement: The following information was validated with the patient. Source: old records reviewed Medical History Dizziness Chest pain Obese Migraines Surgical History History of esophagogastroduodenoscopy (EGD) Hx of tubal ligation Family History Family History Father Stomach cancer Mother Cancer Social History Social History Housing: Apartment Alcohol intake: never Patient Tobacco Use Status: Former Tobacco user Tobacco use type: Cigarette e-Cigarette/Vaping Use: Never Used Second Hand Smoke Exposure: No Advance Directives: No Advance Directives Information Provided: Yes Do you have a plan to hurt others: No Plan service: No Current occupational status: employed Current occupational exposures/hazards: No Cognitive needs: No Hearing needs: No Vision needs: No Physical Exam Vital Signs: Vital Signs: Last Vital Signs Temp 98.3 F 04/10/24 19:15 Pulse 107 H 04/10/24 19:15 Resp 22 H 04/10/24 19:15 BP 123/97 H 04/10/24 19:15 Pulse Ox 99 04/10/24 19:15 O2 Del Method Room Air 04/10/24 19:15 BMI result Body Mass Index 42.8 Const: General: cooperative, healthy appearing and no acute distress Orientation/consciousness: patient oriented x3 Limitations: no limitations HEENT: Head: Yes normal to inspection and Yes atraumatic Ears: hearing grossly normal bilaterally, external ears normal and mastoids normal General nose exam: Normal external nose present Face and sinus: Yes normal facial exam Mouth: Normal oral and palatal mucosa present and no drooling Throat: Yes posterior oropharynx normal, Yes tonsils normal, Yes uvula midline, No peritonsillar mass, No uvula laterally displaced and No uvular edema Eyes: General: appearance normal, both eyes and all related structures EOM: EOMs intact bilaterally Neck: Neck: Yes normal visual inspection and Yes no meningeal signs Resp: Effort & Inspection: normal respiratory effort, no respiratory distress and no stridor Auscultation: clear to auscultation bilaterally, no crackles and no wheezes Cardio: Rate: regular rate Heart sounds: S1 normal heart sound present and S2 normal heart sound present Skin: Rashes: no rashes Wounds: no wounds Neuro: General: patient oriented x3, tone normal and no meningeal signs Cranial nerves: Yes CN's II-XII intact bilaterally Gait exam (Neuro): Normal gait present Extrem: General: Yes normal to inspection and Yes no pedal edema Course Course Course Narrative: This is a Rapid Medical Examination (RME) performed by Radha Schulz PA-C in triage. Full HPI, ROS, assessment and treatment plan per primary provider in the Main ED. 49 yo Japanese speaking female with history of migraines, depression who presents to the ER for evaluation of headaches, subjective fevers, cough, sore throat for the last 4 days. her son was recently sick with a cough. Plan: viral swab, strep swab -COVID/flu/RSV and rapid strep negative -1944--ED care transferred to [facility] pending CXR and dispo per results Reevaluation(s) Reevaluation #1: Zelda Medina PA-C have accepted care of the patient and signed out pending x-ray and final disposition I have independently reviewed the following tests: Chest x-ray: XR/XR chest 2V IMPRESSION: Unremarkable examination. Electronically signed by: Davey Higuera MD 04/10/2024 07:53 PM EST Time: 20:09 Medications Administered Discontinued Medications Generic Name Dose Route Start Last Admin Trade Name Freq PRN Reason Stop Dose Admin Acetaminophen/Butalbital/Caffeine 1 tab 04/10/24 16:00 04/10/24 17:10 Butalb/Acetamin/Caff 50/325/40 Tablet PO 04/10/24 16:01 1 tab ONCE ONE Administration Medical Decision Making Medical Decision Making MDM Narrative: 49-year-old Japanese-speaking female with a past medical history migraines, GERD, IBS, [place], chronic gastritis, presenting to the ED complaining of headache, subjective fever, sore throat, congestion, dry cough and mild SOB x 4 days. On exam mild tachycardia likely from cough, NAD, nontoxic appearing, lungs CTA, oropharynx WNL. Concern for viral illness vs bronchitis vs strep pharyngitis vs pneumonia. Low suspicion for ACS/PE or DVT Plan: Viral testing, rapid strep, CXR Please refer to course for remaining clinical decision making, interpretation of labs/imaging results, and discussions with consultants and/or family members. Differential Diagnosis Differential Diagnoses: The differential diagnosis associated with the pre sentation includes As above Lab Data MDM Lab Attestation statement: I reviewed the patient's lab results. Labs: Lab Results 04/10/24 04/10/24 Range/Units 11:57 11:58 Influenza Type A (PCR) NEGATIVE (Negative) Influenza Type B (PCR) NEGATIVE (Negative) RSV RNA Qual (PCR) NEGATIVE (Negative) SARS-CoV-2 RNA (RT-PCR) NEGATIVE (Negative) S. pyogenes GrpA ROSETTA Negative (Negative) Independent Interpretation I performed an independent interpretation of an: Plain X-Ray Radiology Impression Discussion of test interpretation with radiology: I have reviewed the radiologist's reading. External Record Review External record reviewed: Inpatient record, Office record, Outpatient record, Prior outpatient labs, Prior outpatient radiology, Primary care record and Outside ED record Tests considered The following testing was considered but not selected: As above Prescription Management I considered prescription management with: Pain Medication and Antibiotic Social Determinants Patient?s care significantly limited by Social Determinants of Health including: Other Social Determinant of Health Discharge Plan Discharge Clinical Impression: Upper respiratory infection Patient Disposition: Home, Self-Care Instructions: Upper Respiratory Infection (DC) Additional Instructions: You have a viral infection causing your symptoms. See home care instructions. If you develop a fever, use [id number] ibuprofen and Tylenol per package instructions. The chest x-ray was negative for pneumonia, your viral panel was negative, you were screened for influenza, RSV and COVID. The strep screen was negative as well, your sore throat is viral as well. You can use warm salt water gargles to manage the discomfort. Follow up with your primary care provider as needed. Prescriptions: No Action pantoprazole 40 mg tablet,delayed release (DR/EC) 40 mg PO DAILY 90 Days Qty: 90 6RF Wegovy 0.25 mg/0.5 mL pen injector 0.25 mg subcut QWEEK 28 Days Qty: 2 0RF Rx Instructions: administer weeks 1 through 4 of therapy sucralfate [Carafate] 1 gram tablet 1 g PO BID Qty: 60 6RF famotidine [Pepcid] 40 mg tablet 40 mg PO BEDTIME Qty: 30 6RF Referrals: Norma Husotn MD [Primary Care Provider] - Stand Alone Forms: Work/School Release Print Language: Japanese
[2024-04-10 12:28] LABS: IDNOW Serial# 08D9AD1C; Strep A Nucleic Acid Negative (Negative)
[2024-04-10 12:46] LABS: Influenza A PCR NEGATIVE (Negative); Influenza B PCR NEGATIVE (Negative); Resp Syncy Virus RNA Qual PCR NEGATIVE (Negative); SARS COV2 PCR INHOUSE NEGATIVE (Negative)
[2024-04-10] MEDS: Butalb/Acetamin/Caff 50/325/40 TABLET 1 TAB PO (17:10)
[2024-04-10 19:15] VITALS: BP 123/97; PULSE 107; RESP 22; TEMP 36.8; O2SAT 99
[2024-04-10 21:00] VITALS: BP 123/97; PULSE 107; RESP 22; TEMP 36.8; O2SAT 99
== END 2024-04-10 21:01 | disposition home or self-care (01) ==
PROVIDERS: Physician Assistant; Emergency Provider Emergency Medicine Emergency Medical Services; PCP Internal Medicine
DX: J06.9 Acute upper respiratory infection, unspecified (principal); R50.9 Fever, unspecified; Z03.818 Encounter for observation for suspected exposure to other biological agents ruled out; J02.9 Acute pharyngitis, unspecified; R05.9 Cough, unspecified; R06.02 Shortness of breath; R51.9 Headache, unspecified; Z87.891 Personal history of nicotine dependence
CPT/HCPCS: 0241U; 71046; 87651; 99283

== ENCOUNTER 2024-07-05 11:05 | Outpatient (AMB) | payer OTHER, SELFPAY ==
--- NOTE | 2024-07-05 11:06 | A.OFFPC_ITS ---
Vital Signs 07/05/24 11:09 Height 5 ft 2 in Weight 229 lb BMI 41.9 BP 118/76 Blood Pressure Location Lt brachial Position Sitting Intake Visit Reasons: Annual Exam Intake Note: Patient here for an annual physical exam Collection Specialist Required: No Accompanied by: Self / Same As Patient Allergies No Known Allergies [No Known Allergies*] Allergy (Verified 07/05/24 11:20) Medication List - Last Reconciled 07/05/24 by Norma Miller MD pantoprazole 40 mg PO DAILY 90 days Tobacco use date assessed: 07/05/24 Dental Screening Dental Screen Date: 07/05/24 Did you have a dental visit in the last 12 months?: Yes Did you have a dental problem in the last 6 months where you did not have access to dental care?: No Was dental information given to patient?: Patient has dentist HPI HPI Comments History of Present Illness Details The patient is a 49-year-old female presenting with the need for routine health maintenance and screening tests. She has not had a mammogram since 2019, nor has she undergone a Pap smear in a couple of years. She also reports noncompliance with colorectal cancer screening via colonoscopy and expresses reluctance towards the procedure, although she has had an endoscopy in 2019. The patient has a significant family history, with her father having had stomach cancer and her mother having from an unspecified type of cancer when the patient was [age] years old. Previously, the patient smoked but quit, and she does not consume alcohol. Her last laboratory tests conducted in January of the previous year showed elevated liver enzymes attributed to her weight. She currently weighs 229 pounds and has a body mass index (BMI) of 41, indicating morbid obesity. Additionally, she reports blurry vision, which she attributes to her eyewear that is primarily for distance vision. - Mammogram scheduled - Pap smear scheduled - Cologuard test offered and to be sent to the patient's home - Weight management program referral off ered - Discussed influenza vaccine efficacy a nd recommended - Patient counseled for tetanus vaccinat ion [facility] Medical History (Updated 07/05/24 @ 11:47 by Norma Miller MD) Mild major depression Dizziness Chest pain Obese Migraines Surgical History History of esophagogastroduodenoscopy (EGD) Hx of tubal ligation Family History Father Stomach cancer Mother Cancer Social History Housing: Apartment Alcohol intake: never Patient Tobacco Use Status: Former Tobacco user Tobacco use type: Cigarette e-Cigarette/Vaping Use: Never Used Second Hand Smoke Exposure: No service: No Current occupational status: unemployed Cognitive needs: No Hearing needs: No Vision needs: No Questionnaire PHQ-9 Over the last 2 weeks, how often have you been bothered by any of the following problems? 1. Little interest or pleasure in doing things: not at all 2. Feeling down, depressed, or hopeless: not at all 3. Trouble falling or staying asleep, or sleeping too much: not at all 4. Feeling tired or having little energy: not at all 5. Poor appetite or overeating: not at all 6. Feeling bad about yourself - or that you are a failure or have let yourself or your family down: not at all 7. Trouble concentrating on things, such as reading the newspaper or watching television: not at all 8. Moving or speaking so slowly that other people could have noticed. Or the opposite - being so fidgety or restless that you have been moving around a lot more than usual: not at all 9. Thoughts that you would be better off or of hurting yourself in some way: not at all Total score: 0 Depression Screening Interpretation: Negative Depression Screening Done: Yes 71177 - PHQ-9 Billing: Yes Source: Developed by Drs. Brian Garnett, Carlie Giles, Haroon Maher and colleagues, with an educational preeti from [employer]. Thrive Questionnaire Date Thrive assessed: 07/05/24 I am a: Patient What is your living situation today?: I choose not to answer this question Within the past 12 months, did the food you bought not last and you didn't have the money to get more?: I choose not to answer this question Within the past 12 months, did you worry whether your food would run out before you got money to buy more?: I choose not to answer this question Do you have trouble paying for medicines?: I choose not to answer this question Do you have trouble getting transportation to medical appointments?: I choose not to answer this question Do you have trouble paying your heating and electricity bill?: I choose not to answer this question Do you have trouble taking care of your child, family member or friend?: I joe se not to answer this question Do you have trouble with day-to-day activities such as bathing, preparing meals, shopping, managing finances, etc.?: I choose not to answer this question Are you currently unemployed and looking for a job?: I choose not to answer this question Are you interested in more education?: I choose not to answer this question Please select the resources that you would like help with: None Currently or been in a relationship where the following occur: I choose not to answer THRIVE Score: 0 AUDIT C Alcohol Use Questionnaire (AUDIT-C) 1. How often do you have a drink containing alcohol?: Never Total Score: 0 Score Reviewed/Action Taken: No ROSA-7 AMB Questionnaire ROSA-7 Date ROSA - 7 assessed: 07/05/24 Feeling nervous, anxious, or on edge: 0 = Not at all Not being able to stop or control worryin = Not at all Worrying too much about different things: 0 = Not at all Trouble relaxin = Not at all Being so restless that it is hard to sit still: 0 = Not at all Becoming easily annoyed or irritable: 0 = Not at all Feeling afraid as if something awful might happen: 0 = Not at all Total ROSA-7 score (0-4 normal; 5-9 mild; 10-14 moderate; 15-21 severe): 0 Source: Developed by Drs. Brian Garnett, Carlie Giles, Haroon Maher and colleagues, with an educational preeti from [employer]. ROSA-7 Assessment Billing ROSA-7 Assessment Tool: ROSA-7 Assessment 74895 Review of Systems Const All systems reviewed & are unremarkable except as noted in HPI and below Card Denies chest pain at rest, Denies chest pain with activity, Denies edema, Denies irregular heart rhythm, Denies claudication, Denies dyspnea, Denies dyspnea on exertion, Denies orthopnea, Denies paroxysmal nocturnal dyspnea and Denies slow heart rate Resp Denies cough, Denies dyspnea and Denies dyspnea on exertion GI Denies abdominal pain, Denies change in bowel habits, Denies excessive flatus, Denies nausea and Denies vomiting Denies urinary incontinence, Denies urinary hesitancy and Denies urinary urgency Musc Denies atrophy, Denies deformity and Denies limited range of motion Physical exam (Primary Care) Vital Signs: Last Vital Signs BP 118/76 07/05/24 11:09 BMI result Body Mass Index 41.9 BMI Assessment/Plan discussion: High BMI High, discussed plan: lifestyle, weight reduction, dietary and physical activity Tobacco/Smoking Status: Tobacco use Status Tobacco use date assessed 07/05/24 07/05/24 11:16 Patient Tobacco Use Status Former Tobacco user 07/05/24 11:16 Tobacco use type Cigarette 07/05/24 11:16 e-Cigarette/Vaping Use Never Used 07/05/24 11:16 PHQ-9: PHQ-9 Score PHQ-9: Total score 0 07/05/24 11:26 Depression Screening Interpretation: Negative Thrive Assessment: Date of Thrive Assessment Date Thrive assessed 07/05/24 07/05/24 11:16 Currently or been in a relationship where the following occur: I choose not to answer [facility] Head: Yes normal to inspection, Yes normocephalic and Yes atraumatic Ears: external ears normal Eyes General: appearance normal, both eyes and all related structures Eyelids: Yes eyelids normal Conjunctivae: conjunctivae normal Neck Neck: Yes normal visual inspection and Yes supple Resp Effort & Inspection: normal respiratory effort Auscultation: clear to auscultation bilaterally Cardio Jugular venous distension: no JVD Rate: regular rate Rhythm: regular rhythm Heart sounds: S1 normal heart sound present and S2 normal heart sound present GI Inspection: Yes normal to inspection Palpation (GI): Soft to palpation and nontender Auscultation: normal bowel sounds Skin General skin exam: no rashes or lesions noted Neuro General: no focal motor deficits Extrem General: Yes full ROM Psych Appearance: grossly normal Office Procedures Flu Questionnaire Does the patient have a severe egg allergy?: No Does the patient have severe life threatening allergies?: No Does the patient have a fever or illness today?: No Has the patient ever had Guillain-[place] Syndrome?: No Has the patient ever had any past reaction to a flu shot?: No Immunizations Fluarix Triv [id number] (PF) 45 mcg (15 mcg x 3)/0.5 mL IM syringe Performing Provider: Norma Miller MD Performing Location: [facility] Administered by: Nasrin Enciso LPN on 07/05/24 11:39 Dose Route Admin Location Dispensed Lot Number Expiration Date NDC Ramp Agent 0.5 mL IM Left Deltoid 0.5 mL [id number] 11/19/24 [id number] [employer] Records VIS Given Date VIS Provided VIS Publication Date 07/05/24 Single Vaccine 20 Eligibility Eligibility Date Funding Source Not [facility] Eligible 07/05/24 Private Coding Level of Care Code Est Pt Level 3 (20448) Est Pt Prev Care 40-64y(15576) Diagnoses Physical exam Z00.00 Screening for cervical cancer Z12.4 Morbid obesity with BMI of 40.0-44.9, adult E66.01; Z68.41 Blurry vision H53.8 Additional Codes PHQ-9 - 09760 - PHQ-9 Billing: Yes ([id number]) ROSA-7 Assessment Billing - ROSA-7 Assessment Tool: ROSA-7 Assessment 61158 ([id number]) Time Spent (min) 34 Assessment & Plan Assessment & Plan (1) Physical exam: Code(s): Z00.00 - Encounter for general adult medical examination without abnormal findings Category: Medical (2) Screening for cervical cancer: Code(s): Z12.4 - Encounter for screening for malignant neoplasm of cervix Category: Medical (3) Morbid obesity with BMI of 40.0-44.9, adult: Code(s): E66.01 - Morbid (severe) obesity due to excess calories; Z68.41 - Body mass i ndex [BMI] 40.0-44.9, adult Category: Medical (4) Blurry vision: Code(s): H53.8 - Other visual disturbances Category: Medical Plan - Initiate mammogram and Pap smear scheduling for routine screening - Send Cologuard test to patient for colorectal cancer screening - Cyber Instructor patient on the importance of colonoscopy despite reluctance - Recommend tetanus vaccination to update immunization status - Suggest referral to a weight management program for obesity management - Address and monitor liver enzyme levels with potential follow-up labs if necessary Patient was informed and verbally consented to the use of an ambient scribe for clinic note documentation during this visit. During the visit, I discussed with the patient the necessary health maintenance screenings, particularly the overdue mammogram, Pap smear, and colorectal screening. The patient was informed about the option for Cologuard, emphasizing ease of use and the significance of detecting potential issues early. The patient agreed to receive the mammogram and Pap smear. We also explored the significance of maintaining updated vaccines, such as tetanus, and the benefits thereof. The discussion included her family history, highlighting the importance of cancer screenings for early detection. Additionally, I encouraged the patient to engage in weight management strategies due to her BMI level and explained the correlation with elevated liver enzymes. Orders: Orders Comprehensive [place]. 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 Referral Z12.4 - Encounter for screening for malignant neoplasm of cervix Ophthalmology Referral H53.8 - Other visual disturbances Medical Weight Management Referral E66.01 - Morbid (severe) obesity due to excess calories, Z68.41 - Body mass index [BMI] 40.0-44.9, adult Cologuard Test Z12.11 - Encounter for screening for malignant neoplasm of colon, Z12.12 - Encounter for screening for malignant neoplasm of rectum Patient Instructions: - Follow-up with scheduled mammogram and Pap smear appointments - Complete the Cologuard test when received at home and mail it back as instructed - Consider updating tetanus immunization - Review the influenza vaccine benefits - Begin weight management strategies or seek a referral to a program that can support this effort - Return to the office if any new symptoms arise or if current conditions worsen
[2024-07-05 11:09] VITALS: BP 118/76; BMI 41.9
== END 2024-07-05 11:42 | disposition home or self-care (01) ==
PROVIDERS: PCP Internal Medicine; Visit Provider Internal Medicine
DX: Z00.00 Encounter for general adult medical examination without abnormal findings (principal); H53.8 Other visual disturbances; E66.01 Morbid (severe) obesity due to excess calories; Z68.41 Body mass index [BMI] 40.0-44.9, adult; Z23 Encounter for immunization

== ENCOUNTER → 2024-07-05 11:05 | Outpatient (BNVA) | payer OTHER, SELFPAY | PROVIDERS: PCP Internal Medicine; Visit Provider Internal Medicine | DX: Z00.00 Encounter for general adult medical examination without abnormal findings (principal); Z23 Encounter for immunization; E66.01 Morbid (severe) obesity due to excess calories; Z68.41 Body mass index [BMI] 40.0-44.9, adult; H53.8 Other visual disturbances | CPT/HCPCS: 90471; 90656; 96127; 99396 ==

== ENCOUNTER → 2024-07-31 12:52 | Outpatient (BNVA) | payer OTHER, SELFPAY | PROVIDERS: PCP Internal Medicine; Visit Provider Surgery ==

== ENCOUNTER 2025-04-24 11:30 | Outpatient (AMB) | payer OTHER, SELFPAY ==
[2025-04-24 12:00] VITALS: BP 130/68; PULSE 97; RESP 18; O2SAT 97; BMI 43.4
--- NOTE | 2025-04-24 12:00 | MHC.PC.OV ---
Vital Signs 04/24/25 12:00 Height 5 ft 2 in Weight 237 lb 8 oz BMI 43.4 BP 130/68 Blood Pressure Location Lt brachial Position Sitting Respiration 18 Pulse 97 Pulse Source Pulse Oximeter Temp Source Temporal Artery Scan Pulse Oximetry (%) 97 Oxygen Delivery Method Room Air Intake Visit Reasons: [place] [facility] 05/10 lt eye Curriculum Assistant Required: No Accompanied by: Self / Same As Patient Allergies No Known Allergies (No Known Allergies*) Allergy (Verified 04/24/25 12:02) Medication List - Last Reconciled 04/24/25 by Diandra Leonard MD pantoprazole 40 mg PO DAILY 90 days Tobacco use date assessed: 04/24/25 Dental Screening Dental Screen Date: 07/05/24 Did you have a dental visit in the last 12 months?: No Did you have a dental problem in the last 6 months where you did not have access to dental care?: No Was dental information given to patient?: No HPI HPI Comments History of Present Illness Details The patient is a 50 year old F with PMH of GERD presenting for a preoperative evaluation for a scheduled left eye surgery on 05/10. The patient was not sure about what type of surgery she will undergo.The patient's current medication includes pantoprazole for GERD. The patient denies any history of heart or lung problems. [facility], [facility] Medical History (Updated 04/24/25 @ 12:10 by Diandra Leonard MD) Mild major depression Dizziness Chest pain Obese Migraines Surgical History History of esophagogastroduodenoscopy (EGD) Hx of tubal ligation Family History (Updated 07/05/24 @ 11:25 by Norma Miller MD) Father Stomach cancer Mother Cancer Social History Housing: Apartment Alcohol intake: never Patient Tobacco Use Status: Former Tobacco user Tobacco use type: Cigarette e-Cigarette/Vaping Use: Never Used Second Hand Smoke Exposure: No service: No Current occupational status: unemployed Cognitive needs: No Hearing needs: No Vision needs: No Questionnaire Thrive Questionnaire Date Thrive assessed: 07/05/24 I am a: Patient What is your living situation today?: I choose not to answer this question Within the past 12 months, did the food you bought not last and you didn't have the money to get more?: I choose not to answer this question Within the past 12 months, did you worry whether your food would run out before you got money to buy more?: I choose not to answer this question Do you have trouble paying for medicines?: I choose not to answer this question Do you have trouble getting transportation to medical appointments?: I choose not to answer this question Do you have trouble paying your heating and electricity bill?: I choose not to answer this question Do you have trouble taking care of your child, family member or friend?: I choose not to answer this question Do you have trouble with day-to-day activities such as bathing, preparing meals, shopping, managing finances, etc.?: I choose not to answer this question Are you currently unemployed and looking for a job?: I choose not to answer this question Are you interested in more education?: I choose not to answer this question Please select the resources that you would like help with: None Currently or been in a relationship where the following occur: I choose not to answer THRIVE Score: 0 ROSA-7 AMB Questionnaire ROSA-7 Date ROSA - 7 assessed: 07/05/24 Source: Developed by Drs. Brian Garnett, Carlie Giles, Haroon Maher and colleagues, with an educational preeti from [employer]. Review of Systems Const Details: As per HPI. Physical exam (Primary Care) Vital Signs: Last Vital Signs Pulse 97 04/24/25 12:00 Resp 18 04/24/25 12:00 BP 130/68 04/24/25 12:00 Pulse Ox 97 04/24/25 12:00 Oxygen Delivery Method Room Air 04/24/25 12:00 BMI result Body Mass Index 43.4 Tobacco/Smoking Status: Tobacco use Status Tobacco use date assessed 04/24/25 04/24/25 12:04 Patient Tobacco Use Status Former Tobacco user 04/24/25 12:04 Tobacco use type Cigarette 04/24/25 12:04 e-Cigarette/Vaping Use Never Used 04/24/25 12:04 Thrive Assessment: Date of Thrive Assessment Date Thrive assessed 07/05/24 04/24/25 12:04 Currently or been in a relationship where the following occur: I choose not to answer Const Other: Pertinent findings are in BOLD GENERAL APPEARANCE NAD, activity normal for age, well developed/ well nourished, no cyanosis, pallor, or diaphoresis. EYES lids/conjunctiva normal. EARS/NOSE/THROAT Mucous membranes moist, nares normal, lips/teeth normal uvula midline without oral pharyngeal erythema, exudate or swelling TMs normal bilaterally. No lymphangitis/lymphedema. HEAD/NECK normocephalic atraumatic, no facial trauma, neck is supple. RESPIRATORY respiratory effort normal, speaks in full sentences, no tripod position, no accessory muscle use. Lungs clear to auscultation without rhonchi, wheezes, rales CARDIAC Regular rate and rhythm, no edema. ABDOMINAL Soft, ND/NT. No evidence of fluid wave. No pulsatile masses on exam, rebound tenderness, Blackman sign or pain over Mcburney's point. MUSCLES/EXTREMITIES No abnormal range of motion, no swelling. SKIN Warm, pink and dry. No rashes, dermatoses, petechiae or lesions. NEUROLOGICAL Speech is clear and appropriate. Normal level of consciousness. Gait and coordination are normal. 5/5 strength in all extremities. PSYCH Normal mood and affect. Judgement/competence is appropriate Coding Level of Care Code Est Pt Level 3 (82332) Diagnoses Pre-op evaluation Z01.818 Assessment & Plan Assessment & Plan (1) Pre-op evaluation: Code(s): Z01.818 - Encounter for other preprocedural examination Category: Medical Plan: - Preoperative blood work was ordered to be completed prior to surgery. CMP with chronic AST and ALT elevation. Otherwise labs are within normal limits. - A 12-lead EKG was ordered for preoperative cardiac clearance. Sinus tachycardia. - PAtient is cleared for surgery. Plan Patient presenting for pre-op evaluation. Blood work and EKG were within normal limits. Patient is cleared for surgery. Orders: Orders Complete Blood Count no Diff 04/24/25 Z01.818 - Encounter for other preprocedural examination Comprehensive Met. Panel 04/24/25 Z01.818 - Encounter for other preprocedural examination Prothrombin Time INR 04/24/25 Z01.818 - Encounter for other preprocedural examination ECG 12 lead EKG 04/24/25 Z01.818 - Encounter for other preprocedural examination
--- OUTSIDE RECORDS SUMMARY | 2025-04-24 13:56 | XMS_ITS | Patient Health Record ---
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 pylori infection (A04.8) Active confirmed Problem Epigastric discomfort (574513698) Epigastric discomfort (R10.13) Active confirmed Plan Of Treatment Pending Test Test Name Order Date H PYLORI AG, STOOL 03/04/2016 Insurance Providers Payer Name Payer Address Payer Phone Subscriber Number Group Number Insured Name Patient Relationship to Insured Coverage Start Date Coverage End Date [facility] [address] [place] [address] [phone] [id number] DANYA SEWELL Self - patient is the insured Medical (General) History Medical History History ICD Code Denies ME,DM,CVA,Lung disease,renal dise ase
== END 2025-04-24 12:20 | disposition home or self-care (01) ==
LOC: HO.HMCH 11:31
PROVIDERS: PCP Internal Medicine; Visit Provider Internal Medicine
DX: Z01.818 Encounter for other preprocedural examination (principal)

== ENCOUNTER → 2025-04-24 11:30 | Outpatient (REF) | payer OTHER, SELFPAY ==
--- NOTE | 2025-04-24 14:19 | ECG_ITS ---
Test Reason : PREOP Blood Pressure : */* mmHG Vent. Rate : 104 BPM Atrial Rate : 104 BPM P-R Int : 168 ms QRS Dur : 74 ms QT Int : 342 ms P-R-T Axes : 36 41 22 degrees QTcB Int : 449 ms Sinus tachycardia Otherwise normal ECG When compared with ECG of 19-May-2023 00:01, No significant change was found Referred By: Diandra Leonard Electronically Signed By: VALENCIA JOYCE
[2025-04-24 14:46] LABS: INTERNATIONAL NORM RATIO 1.1 (0.9-1.1); Prothrombin Time 13.6 SEC (11.2-13.5)
[2025-04-24 14:47] LABS: Hematocrit 40.6 % (37.0-47.0); Hemoglobin 12.8 g/dl (12.0-16.0); Mean Corpuscular HGB Conc 31.5 g/dl (31.0-35.0); Mean Corpuscular Hemoglobin 27.5 pg (27.0-33.0); Mean Corpuscular Volume 87.1 fL (80.0-98.0); NRBC Abs Auto 0.000 X10*3/uL (0.0-0.012); NRBC Pct Auto 0.0 /100WBC (0.0-0.2); Platelet Count 358 X10*3/uL (160-400); Red Blood Count 4.66 X10*6/uL (4.20-5.50); White Blood Count 9.1 X10*3/uL (4.8-10.8)
[2025-04-24 15:13] LABS: Alanine Aminotransferase 93 U/L (0-31); Albumin Level 3.9 g/dL (3.5-5.0); Alkaline Phosphatase 161 U/L (39-117); Anion Gap 11 (12-20); Aspartate Amino Transferase 110 U/L (5-31); Blood Urea Nitrogen 9 mg/dL (9-16); Calcium 9.3 mg/dL (8.4-10.2); Carbon Dioxide 26 mmol/L (22-29); Chloride 106 mmol/L (96-108); Estimated Glomerular Filt Rate > 60; Potassium 3.9 mmol/L (3.3-5.1); Sodium 139 mmol/L (135-145); Total Protein 8.4 g/dL (6.5-8.0)
== END ==
LOC: HO.CARD 11:30
PROVIDERS: PCP Internal Medicine; Visit Provider Internal Medicine
DX: Z01.818 Encounter for other preprocedural examination (principal)
CPT/HCPCS: 36415; 80053; 85027; 85610; 93005

== ENCOUNTER → 2025-04-24 14:19 | Outpatient (BNV) | payer OTHER, SELFPAY | PROVIDERS: PCP Internal Medicine; Visit Provider Internal Medicine | DX: R00.0 Tachycardia, unspecified (principal) | CPT/HCPCS: 93010 ==